=== PATIENT | male | born 1950 | race Caucasian/White ===

== ENCOUNTER 2017-04-06 09:46 | Inpatient (IN) | payer MEDICARE, SELFPAY ==
[2017-04-06] VITALS (17 sets, daily range): BP systolic 98–131; BP diastolic 51–85; PULSE 61–97; RESP 14–24; TEMP 36.4–37.1; O2SAT 95–100; BMI 27.9; BMI 28.3
[2017-04-06] MEDS: 0.9% Normal Saline 1,000 ML 1000 ML IV ×2 (10:21)
[2017-04-06] MEDS: Ondansetron 4 MG/2 ML Vial IV (10:21)
--- NOTE | 2017-04-06 10:26 | RAD_ITS ---
STUDY: X-RAY CHEST REASON FOR EXAM: Male, 66 years old. Cough and nausea. Patient is on chemotherapy. TECHNIQUE: AP and lateral views of the chest. COMPARISON: Comparison is made with prior study dated March 08, 2017. FINDINGS: EKG electrodes are seen. A left-sided portacatheter is in situ. The tip is at the junction of the superior vena cava and right atrium. The lungs are clear and expanded. There is no demonstrated pleural abnormality. Normal size heart. Normal mediastinum and naveed. Normal visualized pulmonary arteries. Normal visualized aortic arch and descending thoracic aorta. Normal visualized thoracic spine. Normal visualized ribs, clavicles, and shoulders. There is no demonstrated abnormality of the visualized soft tissue structures of the upper abdomen. RAD/Chest PA and Lateral IMPRESSION: No acute abnormality is seen. Electronically Signed: Leopoldo Tang MD at 11:21 EST Tel [phone], Service support ,
--- NOTE | 2017-04-06 10:34 | ED.VISSUMM ---
- ER Visit Summary Date of Service: 04/06/17 Chief Complaint: Nausea, vomiting, dehydration History of Present Illness: The patient is a 66 M with a history of stage III esophageal cancer presenting with decreased p.o. intake for the last 3 days. He has been nauseated and vomiting ever since his last chemotherapy treatment which was approximately 6 days ago but much worse for the past 3 days. He does not have abdominal pain but he does feel generally weak and has subjective fevers and chills. He also has mild dysuria. He spoke with his building specialist and arrangements were made to place a PEG tube tomorrow. Dr. Holman has already been in contact with Dr. Amaya Physical Examination: He is mildly tachycardic. Mucous membranes are dry. Afebrile. Other vitals are within normal limits. Neck is supple. Heart tones are regular and without murmur. Lungs are clear bilaterally. Abdomen is soft and nontender. No edema. No rash. Test Results: Laboratory studies are basically unremarkable. He appears somewhat dehydrated. His counts are low, as expected. Flu swab negative. Chest x-ray negative. Urine still pending. Emergency Department Course and Treatment: He was given IV fluids and antiemetics and admitted to the hospitalist. Plan is for PEG tube placement. Treatment Plan: Continued IV fluids and admit for surgical consultation Disposition: Admit to medical floor Impression: Initial encounter intractable vomiting, initial encounter acute dehydration the setting of recent chemotherapy with history of stage III esophageal cancer This note was generated with [employer] dictation software. It may contain incorrect words, spelling, and punctuation that were not noted in review of the chart prior to signing ED Disposition - Plan for ED Patient: Chief Complaint: Nausea/Vomiting Referrals: Awais Holman DO [STAFF PHYSICIAN] -
--- NOTE | 2017-04-06 10:37 | ED.DCSUM_ITS ---
- ER Visit Summary Date of Service: 04/06/17 Chief Complaint: Nausea, vomiting, dehydration History of Present Illness: The patient is a 66 M with a history of stage III esophageal cancer presenting with decreased p.o. intake for the last 3 days. He has been nauseated and vomiting ever since his last chemotherapy treatment which was approximately 6 days ago but much worse for the past 3 days. He does not have abdominal pain but he does feel generally weak and has subjective fevers and chills. He also has mild dysuria. 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 Dr. Holman has already been in contact with Dr. Amaya Physical Examination: He is mildly tachycardic. Mucous membranes are dry. Afebrile. Other vitals are within normal limits. Neck is supple. Heart tones are regular and without murmur. Lungs are clear bilaterally. Abdomen is soft and nontender. No edema. No rash. Test Results: Laboratory studies are basically unremarkable. He appears somewhat dehydrated. His counts are low, as expected. Flu swab negative. Chest x-ray negative. Urine still pending. Emergency Department Course and Treatment: He was given IV fluids and antiemetics and admitted to the hospitalist. Plan is for PEG tube placement. Treatment Plan: Continued IV fluids and admit for surgical consultation Disposition: Admit to medical floor Impression: Initial encounter intractable vomiting, initial encounter acute dehydration the setting of recent chemotherapy with history of stage III esophageal cancer This note was generated with [employer] dictation software. It may contain incorrect words, spelling, and punctuation that were not noted in review of the chart prior to signing ED Disposition - Plan for ED Patient: Chief Complaint: Nausea/Vomiting Referrals: Awais Holman DO [STAFF PHYSICIAN] -
--- NOTE | 2017-04-06 10:43 | ED.RN ---
THIS NURSE CONTACTED [facility] FOR MEDICATION LIST
--- NOTE | 2017-04-06 10:46 | ED.RN ---
[facility] [phone]
[2017-04-06 10:58] LABS: Absolute Lymphocyte Count 0.26 X10^3/ul (0.83-4.51); Absolute Neutrophil Count 1.9 X10^3/uL (2.0-7.7); Eosinophil# 0.01 X10^3/uL; Eosinophils% 0.4 % (0-5); Hematocrit 31.1 % (40-54); Hemoglobin 10.6 g/dl (13.0-16.5); Lymphocyte # 0.26 X10^3/ul (4.0); Lymphocyte % 11.5 % (19-41); Mean Corp Hgb Conc 34.1 g/gl (32-36); Mean Corpuscular Hgb 31.4 pg (27.0-32.0); Mean Platelet Vol. 9.3 fl (6.2-12.0); Monocyte# 0.05 X10^3/uL; Monocyte% 2.2 % (0-10); Neutrophil # 1.94 X10^3/uL (2.7-7.7); Neutrophil % 85.5 % (47-70); Platelet Count 82 K/mm3 (150-450); RBC Distribution Width CV 13.7 % (11.6-14.6); RBC Distribution Width SD 44.3 fl (35.1-43.9); Red Blood Count 3.38 M/mm3 (4.6-6.2); White Blood Count 2.3 K/mm3 (4.4-11.0)
[2017-04-06 10:59] LABS: Differential Indicated SCAN CRITERIA MET; POSITIVE COUNT NO; POSITIVE DIFFERENTIAL YES; POSITIVE MORPHOLOGY NO
[2017-04-06 11:10] LABS: ALB/GLOB Ratio 0.9 RATIO (0.9-2.4); AST(SGOT) 15 U/L (15-37); Alanine Aminotransfer ALT/SGPT 30 U/L (16-61); Albumin, Serum 3.4 g/dL (3.2-5.0); Alkaline Phosphatase 60 U/L (45-117); Anion Gap 10 (5-15); BUN 19 mg/dL (7-18); BUN/Creat Ratio 28.5 RATIO (10-20); Calcium,Total 8.9 mg/dL (8.5-10.1); Chloride 103 mmol/L (98-107); Creatinine, Serum 0.67 mg/dL (0.70-1.30); EST Glomerular Filtration Rate 128 mL/min (>60); Est Glom Filt Rate - Afr Amer 154 mL/min (>60); Estimated Creatinine Clearance 122.26 ml/min; Globulin 3.6 g/dL (2.2-4.2); Glucose 131 mg/dL (70-110); Potassium 3.7 mmol/L (3.5-5.1); Sodium Level 137 mmol/L (136-145)
--- NOTE | 2017-04-06 11:41 | NURSING ---
DR DENNIS OCAMPO
--- NOTE | 2017-04-06 12:02 | NURSING ---
MED SURG INANITION, ESOPHAGEAL CA, UNABLE TO SWALLOW SEMENTI
--- NOTE | 2017-04-06 12:03 | HP.PCM_ITS ---
Problem List (1) Esophageal cancer Status: Chronic Qualifiers: Malignant neoplasm of esophagus location: lower third Qualified Code(s): C15.5 - Malignant neoplasm of lower third of esophagus Comment: follows with Dr. Holman and is getting chemotherapy (2) Pancytopenia Status: Acute (3) Inanition Status: Chronic (4) Swallowing difficulty Status: Chronic (5) Chronic anticoagulation Status: Acute Comment: on Xarelto (6) History of recurrent deep vein thrombosis (DVT) Status: Chronic Comment: GUILLAUME Hughes (7) Former cigarette smoker Status: Chronic Comment: quit in March of 2017 (8) Dehydration Status: Acute (9) Thrush Status: Acute (10) Diabetes mellitus type 2 in nonobese Status: Acute (11) Chronic radicular low back pain Status: Acute History of Present Illness Date of Admission: 04/06/17 Chief Complaint: unable to eat The patient is a 66 year old M with a hx of esophageal CA diagnosed in December of 2016. He started both chemotherapy and radiation in March of 2017. Has been seeing Dr. Holman. He has been having difficulty swallowing and is also having N/V. He also complains of a cough productive of clear sputum. He has been feeling hot and cold but has not taken his temperature. His urine is very dark and strong smelling the past few days and He has been feeling lightheaded. Denies syncope. He was sent to the ED by Dr. Holman today for dehydration and Dr. Amaya has been consulted by Dr. Holman for PEG tube placement. He did not take any of his medications today and is c/o severe pain in both legs and he can not lie on his back...he is most comfortable on the right side. Past Medical History Past Medical History (Chronic Problems): Chronic Problems Esophageal cancer (Chronic) follows with Dr. Holman and is getting chemotherapy Inanition (Chronic) Swallowing difficulty (Chronic) History of recurrent deep vein thrombosis (DVT) (Chronic) GUILLAUME Hughes Former cigarette smoker (Chronic) quit in March of 2017 Allergies linagliptin [From Tradjenta] Allergy (Verified 04/06/17 09:50) Rash Home Medications: Ambulatory Orders Medication Instructions Recorded Cholecalciferol (Vitamin D3) 2,000 unit PO DAILY 04/06/17 [Vitamin D3] Citalopram Hydrobromide 20 mg PO DAILY 04/06/17 [Citalopram HBr] Gabapentin [Gralise] 900 mg PO TID 04/06/17 Lisinopril [Zestril] 5 mg PO DAILY 04/06/17 Lovastatin [Mevacor] 40 mg PO DAILY 04/06/17 Metformin HCl [Metformin HCl ER] 500 mg PO DINNER 04/06/17 Omeprazole [Prilosec] 20 mg PO DAILY 04/06/17 Oxycodone HCl/Acetaminophen 1 tablet PO Q6H PRN PRN 04/06/17 [Percocet 10-325 mg Tablet] Promethazine HCl 25 mg IJ Q6H PRN PRN 04/06/17 Rivaroxaban [Xarelto] 20 mg PO DAILY 04/06/17 Sucralfate [Carafate] 1 gm PO BID 04/06/17 Topiramate [Topiramate ER] 100 mg PO QHS 04/06/17 Surgical History: herniorrhaphy - ventral hernia Psychiatric History: No pertinent psych hx - started on Celexa recently by Dr. Holman Lives: Spouse/ Significant Other Smoking Status: Former smoker - quit in March 2017 Tobacco Use: Non-smoker Alcohol: Rare Drugs: None - *Family History Maternal History Items: Cancer - maternal uncle had lung CA Review of Systems Constitutional: Reports: Anorexia, Chills - alternately hot and then cold.....has not taken temp, Malaise, Weakness, Weight Change - has been losing weight Eyes: Denies: Blurred vision, Redness HEENT: Reports: Difficulty Swallowing, Nasal bleeding. Denies: Difficulty Hearing Cardiovascular: Reports: Light Headedness. Denies: Chest Pain, Edema, Syncope Respiratory: Reports: Cough, Sputum production - clear Gastrointestinal: Reports: Dyspepsia, Nausea, Vomiting. Denies: Hematemesis Genitourinary: Denies: Dysuria Musculoskeletal: Reports: Leg Pain - BL....has chronic back pain with radiation to both legs....unable to take Neurontin recently due to trouble swallowing and N/V Skin: Denies: Jaundice, Rash, Wounds Neurological: Denies: Balance problems, Slurred speech, Confusion, Seizures Psychiatric: Denies: Anxiety, Depression, Homicidal Ideations, Suicidal Ideations Hematologic/ Lymphatic: Reports: Hx of blood clot - has had DVT in the RLE and when Warfarin was stooped he got a DVT in the LLE. Denies any hx of PE VTE Information - Inpt Only VTE Present on Admission: No - has been taking 20 mg of Xarelto VTE Mechan Device Prophylaxis: SCD's, Knee High JULIO CESAR Hose VTE Pharm Prophylaxis ordered?: Yes Patient Problems: Active and Suspected Problems Pancytopenia (Acute) Chronic anticoagulation (Acute) on Xarelto Dehydration (Acute) Thrush (Acute) Diabetes mellitus type 2 in nonobese (Acute) Chronic radicular low back pain (Acute) - Physical Exam General: Alert, Oriented x3, Cooperative, - - appears to be in severe pain HEENT: Atraumatic, PERRLA, EOMI, Normocephalic Oral: No Gingival or Mucosal Lesions/ Ulcerations - he has patchy erythema of the hard and the soft palate, Dry Mucosa, - - tongue is coated and he has a bad taste in his mouth Neck: Supple, No JVD, No Nodes, Trachea Midline Lungs: Clear to auscultation, No rhonchi, No wheeze, No rales, Diminished Cardiovascular: Regular Rhythm, Normal S1, Normal S2, No murmurs, No rub noted, No Gallop, Tachycardic Abdomen: Soft, Non Tender, Non-Distended, Hypoactive Bowel Sounds Extremities: No clubbing, No cyanosis, No edema, Peripheral Pulses Normal Skin: No rashes, No breakdown Musculoskeletal: No Muscle Wasting Neurological: Cranial nerves II-XII grossly intact, Neuro grossly intact Psych/Mental Status: Appropriate Vital Signs Temp Pulse Resp BP Pulse Ox 98.7 F 75 24 H 122/79 H 96 04/06/17 09:48 04/06/17 11:49 04/06/17 11:49 04/06/17 11:49 04/06/17 11:49 Oxygen Delivery Method Room Air Weight: 206 lb Body Mass Index (BMI) 27.9 Microbiology Past 72 Hours 04/06/17 10:40 Influenza Types A,B Direct FA (KINGA) - Final Mucosa - Nose Laboratory Tests Past 24 Hrs 04/06/17 04/06/17 10:20 10:20 WBC 2.3 L RBC 3.38 L Hgb 10.6 L Hct 31.1 L MCV 92.0 MCH 31.4 MCHC 34.1 RDW 13.7 RDW Differential 44.3 H Plt Count 82 L MPV 9.3 Immature Gran % (Auto) 0.400 Neut % (Auto) 85.5 H Lymph % (Auto) 11.5 L [place] % (Auto) 2.2 Eos % (Auto) 0.4 Baso % (Auto) 0.0 Absolute Neuts (auto) 1.9 L Absolute Lymphs (auto) 0.26 L Total Counted Not Reportable Differential Comment COMMENT Sodium 137 Potassium 3.7 Chloride 103 Carbon Dioxide 24.0 Anion Gap 10 BUN 19 H Creatinine 0.67 L Estim Creat Clear Calc 122.26 Est GFR (MDRD) Af Amer 154 Est GFR (MDRD) Non-Af 128 BUN/Creatinine Ratio 28.5 H Glucose 131 H Calcium 8.9 Total Bilirubin 0.50 AST 15 ALT 30 Alkaline Phosphatase 60 Total Protein 7.0 Albumin 3.4 Globulin 3.6 Albumin/Globulin Ratio 0.9 Assessment/Plan Active and Suspected Problems Pancytopenia (Acute) Chronic anticoagulation (Acute) on Xarelto Dehydration (Acute) Thrush (Acute) Diabetes mellitus type 2 in nonobese (Acute) Chronic radicular low back pain (Acute) Impressions 1. inanition 2. 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 esophageal CA - surrently being treated with chemo and radiation 4. Former smoker - quit March 2017 5. hx of recurrent DVT's 6. chronic anticoagulation with Warfarin 7. dehydration 8. DM II 9. Thrush 10. chronic back pain with radiation into both legs Consult Dr. Amaya for a PEG LEATHER LEVELER for pain control Hold Xarelto today and give 1 dose Lovenox restart the Lovenox at 1 mg/kg Q 12 hours when OK with Dr. Amaya Recheck BMP in AM Check a PT and PTT Hydrate Check a UA and culture Code Visit Inpatient E&M: 71914 Init Hosp L2
[2017-04-06 13:02] LABS: International Normalized Ratio 1.3; Prothrombin Time (Protime)PT. 15.2 SECONDS (11.7-14.9)
[2017-04-06 13:03] LABS: Partial Thromboplast Time 27.7 Seconds (24.1-36.2)
[2017-04-06] MEDS: Lactated Ringers 1,000 ML 125 ML IV ×2 (13:08→23:07)
[2017-04-06] MEDS: HYDROmorphone 1 MG/ML Syringe IV (13:55)
[2017-04-06] MEDS: HYDROmorphone PCA 0.2 MG/ML 100 ML BAG 20 MG IV (14:28)
[2017-04-06 14:36] LABS: Magnesium 1.7 mg/dL (1.6-2.6); Phosphorus 3.4 mg/dL (2.5-4.9)
[2017-04-06] MEDS: 0.9% Normal Saline 1,000 ML 999 ML IV (14:52)
[2017-04-06] MEDS: Enoxaparin 40 MG/0.4 ML Syringe SC (14:58)
[2017-04-06 15:44] LABS: Bacteria 0 SEEN /hpf (None Seen); Red Blood Cells-Urine 0 SEEN /hpf (0-5); Squamous Epithelial Cells - UA 0 SEEN /hpf (0-5)
[2017-04-06 15:46] LABS: Color, Urine Yellow (Yellow); Glucose, Dipstick Normal (Normal); Leukocyte Esterase-Dipstick 25 /ul (Negative); Nitrite-Dipstick Negative (Negative); Occult Blood-Urine Negative /ul (Negative); Protein-Dipstick 15 mg/dl (Negative); Urine Bilirubin Dipstick Negative (Negative); Urine Clarity Clear (Clear); Urine Urobilinogen 4 mg/dl (Normal)
[2017-04-06 15:50] LABS: Ketone-Dipstick 150 mg/dl (Negative)
[2017-04-06 15:57] LABS: White Blood Cells 0-5 SEEN /hpf (0-5)
[2017-04-06 15:58] LABS: Mucous, Urine 2+ /hpf (<or=2+)
[2017-04-06 17:31] LABS: Bedside Glucose 101 mg/dL (70-110)
--- NOTE | 2017-04-06 18:15 | PCM.CONS.B ---
Problem List (1) Esophageal cancer Status: Chronic Qualifiers: Malignant neoplasm of esophagus location: lower third Qualified Code(s): C15.5 - Malignant neoplasm of lower third of esophagus Comment: follows with Dr. Holman and is getting chemotherapy (2) Pancytopenia Status: Acute (3) Dehydration Status: Acute - Consult Date of Consult: 04/06/[address] Vanegas regarding a patient with locally advanced esophageal cancer receiving concurrent chemotherapy and radiation therapy with severe dysphagia, pain and dehydration. My final recommendation will be communicated by electronic medical records - Reason for Consult Esophageal cancer Pancytopenia secondary to chemotherapy Radiation-induced esophagitis History of Present Illness Date of Admission: 04/06/17 Chief Complaint: Dysphagia and dehydration The patient is a 66 year old M with a hx of esophageal CA diagnosed in December of 2016. He started concurrent chemotherapy ( paclitaxel and carboplatin weekly ) and radiation the beginning of March of 2017. He has been having difficulty swallowing along with N/V starting this week. He also complains of a cough productive of clear sputum. He has been feeling warm with chills, but has not taken his temperature. He has not been eating or drinking well for the last week and he has been feeling lightheaded. His urine output is decreased with dark urine. Although patient denied dysuria or hematuria. He was sent to the ED today by Dr. Holman for dehydration and Dr. Amaya has been consulted by Dr. Holman for PEG tube placement. He has history of bilateral DVT and has c/o severe pain in both legs and he can not lie on his back. He has receive IV fluid hydration and his symptom has improved somewhat. Past Medical History Past Medical History (Chronic Problems): Chronic Problems Esophageal cancer (Chronic) follows with Dr. Holman and is getting chemotherapy Swallowing difficulty (Chronic- x 1 year) History of recurrent deep vein thrombosis (DVT) (Chronic) Former cigarette smoker (Chronic) quit in March of 2017 Allergies linagliptin [From Tradjenta] Allergy (Verified 04/06/17 09:50) Rash Home Medications: Ambulatory Orders Medication Instructions Recorded Cholecalciferol (Vitamin D3) 2,000 unit PO DAILY 04/06/17 [Vitamin D3] Citalopram Hydrobromide 20 mg PO DAILY 04/06/17 [Citalopram HBr] Gabapentin [Gralise] 900 mg PO TID 04/06/17 Lisinopril [Zestril] 5 mg PO DAILY 04/06/17 Lovastatin [Mevacor] 40 mg PO DAILY 04/06/17 Metformin HCl [Metformin HCl ER] 500 mg PO DINNER 04/06/17 Omeprazole [Prilosec] 20 mg PO DAILY 04/06/17 Oxycodone HCl/Acetaminophen 1 tablet PO Q6H PRN PRN 04/06/17 [Percocet 10-325 mg Tablet] Promethazine HCl 25 mg IJ Q6H PRN PRN 04/06/17 Rivaroxaban [Xarelto] 20 mg PO DAILY 04/06/17 Sucralfate [Carafate] 1 gm PO BID 04/06/17 Topiramate [Topiramate ER] 100 mg PO QHS 04/06/17 Surgical History: herniorrhaphy - ventral hernia Psychiatric History: No pertinent psych hx - started on Celexa recently by Dr. Holman Lives: Spouse/ Significant Other Smoking Status: Former smoker - quit in March 2017 Tobacco Use: Non-smoker Alcohol: Rare Drugs: None - *Family History Maternal History Items: Cancer - maternal uncle had lung CA Review of Systems Constitutional: Reports: Anorexia, Chills - alternately hot and then cold.....has not taken temp, Malaise, Weakness, Weight Change - has been losing weight Eyes: Denies: Blurred vision, Redness HEENT: Reports: Difficulty Swallowing, Nasal bleeding. Denies: Difficulty Hearing Cardiovascular: Reports: Light Headedness. Denies: Chest Pain, Edema, Syncope Respiratory: Reports: Cough, Sputum production - clear Gastrointestinal: Reports: Dyspepsia, Nausea, Vomiting. Denies: Hematemesis Genitourinary: Denies: Dysuria Musculoskeletal: Reports: Leg Pain - BL....has chronic back pain with radiation to both legs....unable to take Neurontin recently due to trouble swallowing and N/V Skin: Denies: Jaundice, Rash, Wounds Neurological: Denies: Balance problems, Slurred speech, Confusion, Seizures Psychiatric: Denies: Anxiety, Depression, Homicidal Ideations, Suicidal Ideations Hematologic/ Lymphatic: Reports: Hx of blood clot - has had DVT in the RLE and when Warfarin was stooped he got a DVT in the LLE. Denies any hx of PE Patient Problems: Active and Suspected Problems Pancytopenia (Acute) Dysphasia/esophagitis (Acute) Chronic anticoagulation for chronic DVTs (Chronic) on Xarelto Dehydration (Acute) Diabetes mellitus type 2 in nonobese (Chronic) Chronic radicular low back pain (Chronic) - Physical Exam General: Alert, Oriented x3, Cooperative, - - appears to be in severe pain HEENT: Atraumatic, PERRLA, EOMI, Normocephalic Oral: No Gingival or Mucosal Lesions/ Ulcerations - he has patchy erythema of the hard and the soft palate, Dry Mucosa, - - tongue is coated and he has a bad taste in his mouth Neck: Supple, No JVD, No Nodes, Trachea Midline Lungs: Clear to auscultation, No wheeze, No rales, Diminished with rhonchi on the right lung base Cardiovascular: Regular Rhythm, Normal S1, Normal S2, No murmurs, No rub noted, No Gallop, Tachycardic Abdomen: Soft, Non Tender, Non-Distended, Hypoactive Bowel Sounds Extremities: No clubbing, No cyanosis, No edema, Peripheral Pulses Normal Skin: No rashes, No breakdown Musculoskeletal: No Muscle Wasting Neurological: Cranial nerves II-XII grossly intact, Neuro grossly intact Psych/Mental Status: Appropriate Vital Signs Temp Pulse Resp BP Pulse Ox 98.7 F 75 24 H 122/79 H 96 04/06/17 09:48 04/06/17 11:49 04/06/17 11:49 04/06/17 11:49 04/06/17 11:49 Oxygen Delivery Method Room Air Weight: 206 lb Body Mass Index (BMI) 27.9 Microbiology Past 72 Hours 04/06/17 10:40 Influenza Types A,B Direct FA (KINGA) - Final Mucosa - Nose Laboratory Tests Past 24 Hrs 04/06/17 04/06/17 10:20 10:20 WBC 2.3 L RBC 3.38 L Hgb 10.6 L Hct 31.1 L MCV 92.0 MCH 31.4 MCHC 34.1 RDW 13.7 RDW Differential 44.3 H Plt Count 82 L MPV 9.3 Immature Gran % (Auto) 0.400 Neut % (Auto) 85.5 H Lymph % (Auto) 11.5 L [place] % (Auto) 2.2 Eos % (Auto) 0.4 Baso % (Auto) 0.0 Absolute Neuts (auto) 1.9 L Absolute Lymphs (auto) 0.26 L Total Counted Not Reportable Differential Comment COMMENT Sodium 137 Potassium 3.7 Chloride 103 Carbon Dioxide 24.0 Anion Gap 10 BUN 19 H Creatinine 0.67 L Estim Creat Clear Calc 122.26 Est GFR (MDRD) Af Amer 154 Est GFR (MDRD) Non-Af 128 BUN/Creatinine Ratio 28.5 H Glucose 131 H Calcium 8.9 Total Bilirubin 0.50 AST 15 ALT 30 Alkaline Phosphatase 60 Total Protein 7.0 Albumin 3.4 Globulin 3.6 Albumin/Globulin Ratio 0.9 Assessment/Plan Active and Suspected Problems 1) pancytopenia secondary to chemotherapy- no obvious source of infection/sepsis Plan: - Blood culture & urine culture pending - Hold antibiotics unless patient decompensated with fever 2) dysphasia secondary to esophagitis radiation and chemotherapy Plan: - Clear liquid diet - Continue PPI, morphine when necessary, BMX suspension when necessary - Continue Diflucan for flush - Consult Dr. Amaya for EGD & PEG tube placement 3) dehydration secondary to above Plan: - IV fluid for hydration 4) esophageal cancer Plan: - Hold chemotherapy and radiation treatment until symptomatic improved - Discusses plan with Dr. Holman tomorrow.
[2017-04-06 21:23] LABS: M R Staph aureus DNA By PCR Negative (Negative); Probe Check PASS; Specimen Processing Control PASS
[2017-04-07] VITALS (27 sets, daily range): BP systolic 97–128; BP diastolic 53–86; PULSE 55–71; RESP 14–18; TEMP 36.4–37.1; O2SAT 95–100
--- NOTE | 2017-04-07 | IMM_PTH ---
PATIENT: RENEE JAEGER LOC: MS2 U#:[id number] AGE/SX: 66/M ROOM: [facility] [place] RE04/06/[address]: Dr. Sobia Vanegas DO : 1950 BED: 1 DIS: 04/09/2017 SPEC #: [id number] RECD: 04/08/17 10:24 STATUS: SOUT REQ #: [id number] JEANMARIE: 04/07/17 00:[address]: Britton Amaya DEPT: IMMUNOHISTOCHEMISTRY RECD BY: Sravani Garcia ENTERED: 04/08/17 10:24 SP TYPE: IMMUNO OTHR DR: Dr. Sobia Vanegas, DO Dr. Awais Holman, DO No Primary Care Phys Tissues: Stomach, NOS Procedures: H Pylori (initial) Comments: @ Ordering doctor for H.PYLORI edited from to @ by CELE at 04/08/17 1042 @ Submitting doctor edited from to DR.RGUTTM Blanc by CELE at 04/08/17 1042 PHYSICIAN & [address] [address] SPECIMEN INFORMATION: Tissue Source: Antral biopsy Clinical Info: Kelly Specimen Number: [id number] CPT code: 85116 METHODOLOGY: Deparaffinized sections of prefer/formalin-fixed tissue or PAP/DQ stained slides are incubated with monoclonal/polyclonal antibodies/oligonucleotide probes. Localization is made via biotin free immunoperoxidase method. Appropriate controls are performed and reacted as expected. Results on target cell population are indicated in the following table: RESULTS: ANTIBODY / CLONE RESULT H Pylori (polyclonal) negative These tests were developed and their performance characteristics determined by [facility]. They may not have been cleared or approved by the U.S. Food and Drug Administration. The FDA has determined that such clearance or approval is not necessary. INTERPRETATION: Antral biopsy: Negative for Helicobacter pylori organisms. SJ:jazmin 04/11/17
--- NOTE | 2017-04-07 | GASB_PTH ---
PATIENT: RENEE JAEGER LOC: MS2 U#:[id number] AGE/SX: 66/M ROOM: [facility] [place] RE04/06/[address]: Dr. Sobia Vanegas DO : 1950 BED: 1 DIS: 04/09/2017 SPEC #: [id number] RECD: 04/07/17 14:36 STATUS: SOUAtiya REQ #: [id number] JEANMARIE: 04/07/17 00:[address]: Britton Amaya DEPT: SURGICAL PATHOLOGY RECD BY: Kane Khan ENTERED: 04/07/17 14:36 SP TYPE: Gastric Bx OTHR DR: Dr. Sobia Vanegas, DO Dr. Awais Holman, No Primary Care Phys Tissues: Gastric mucous membrane Procedures: Surgery Specimen Level IV Comments: @ Ordering doctor for SUIV edited from to @ by CELE at 04/07/17 1530 @ Submitting doctor edited from to DR.RGUTTM Blanc by CELE at 04/07/17 1530 HEADER OPERATION: EGD PRE-OP DIAGNOSIS: Dysphagia TISSUE SUBMITTED: Antral biopsy MICROSCOPIC DIAGNOSIS Antral biopsy: Mild gastritis. TRE:jazmin 04/08/17 COMMENT The results of immunohistochemistry for Helicobacter pylori will be reported separately ([id number]). MICROSCOPIC DESCRIPTION Slides are reviewed. The specimen shows fragments of gastric mucosa with chronic inflammatory cell infiltrates in the lamina propria consisting of lymphocytes and plasma cells, consistent with mild chronic gastritis. GROSS DESCRIPTION Received in fixative is one container labeled with the patient's name and designated antral biopsy. The specimen consists of one irregular fragment of light moreno soft tissue that measures 0.3 x 0.3 x 0.1 cm. The specimen is totally submitted in one cassette. / TRE:jazmin 04/07/17 TC:3 CPT: 50699
[2017-04-07 00:11] LABS: Bedside Glucose 113 mg/dL (70-110)
[2017-04-07 05:56] LABS: Bedside Glucose 94 mg/dL (70-110)
[2017-04-07 05:58] LABS: Absolute Lymphocyte Count 0.09 X10^3/ul (0.83-4.51); Absolute Neutrophil Count 1.2 X10^3/uL (2.0-7.7); Eosinophil# 0.04 X10^3/uL; Eosinophils% 2.7 % (0-5); Hematocrit 24.4 % (40-54); Hemoglobin 8.3 g/dl (13.0-16.5); Lymphocyte # 0.09 X10^3/ul (4.0); Mean Corpuscular Hgb 31.8 pg (27.0-32.0); Mean Corpuscular Volume 93.5 fL (80-94); Mean Platelet Vol. 8.9 fl (6.2-12.0); Monocyte# 0.19 X10^3/uL; Monocyte% 12.7 % (0-10); Neutrophil # 1.18 X10^3/uL (2.7-7.7); Neutrophil % 78.6 % (47-70); Platelet Count 60 K/mm3 (150-450); RBC Distribution Width CV 13.2 % (11.6-14.6); RBC Distribution Width SD 42.1 fl (35.1-43.9); Red Blood Count 2.61 M/mm3 (4.6-6.2); White Blood Count 1.5 K/mm3 (4.4-11.0)
--- NOTE | 2017-04-07 06:00 | EKG12_ITS ---
Test Reason : AM EKG Blood Pressure : / mmHG Vent. Rate : 060 BPM Atrial Rate : 060 BPM P-R Int : 166 ms QRS Dur : 088 ms QT Int : 440 ms P-R-T Axes : 054 -03 005 degrees QTc Int : 440 ms Normal sinus rhythm Normal ECG Confirmed by SCOOTER RAMOS, ASHOK ([id number]), associate entertainment editor LYNNE CARLOS ([id number]) on 04/18/2017 2:14:36 PM Referred By: DR COLLINS Confirmed By:ASHOK HELMS MD
[2017-04-07 06:06] LABS: Differential Indicated SCAN CRITERIA MET; International Normalized Ratio 1.3; POSITIVE COUNT NO; POSITIVE DIFFERENTIAL YES; POSITIVE MORPHOLOGY NO; Prothrombin Time (Protime)PT. 15.8 SECONDS (11.7-14.9)
[2017-04-07 06:07] LABS: Partial Thromboplast Time 28.8 Seconds (24.1-36.2)
[2017-04-07 06:20] LABS: AST(SGOT) 12 U/L (15-37); Alanine Aminotransfer ALT/SGPT 25 U/L (16-61); Albumin, Serum 2.6 g/dL (3.2-5.0); Alkaline Phosphatase 48 U/L (45-117); Anion Gap 7 (5-15); BUN 13 mg/dL (7-18); BUN/Creat Ratio 33.1 RATIO (10-20); Bilirubin, Direct 0.16 mg/dL (0.00-0.30); Calcium,Total 8.1 mg/dL (8.5-10.1); Chloride 108 mmol/L (98-107); Creatinine, Serum 0.39 mg/dL (0.70-1.30); EST Glomerular Filtration Rate 235 mL/min (>60); Est Glom Filt Rate - Afr Amer 284 mL/min (>60); Estimated Creatinine Clearance 210.03 ml/min; Globulin 2.7 g/dL (2.2-4.2); Glucose 94 mg/dL (70-110); Potassium 3.5 mmol/L (3.5-5.1); Protein, Total 5.3 g/dL (6.4-8.2); Sodium Level 140 mmol/L (136-145)
--- NOTE | 2017-04-07 07:38 | PCM.PROGNOTE ---
Patient Problems: Active and Suspected Problems Pancytopenia (Acute) Chronic anticoagulation (Acute) on Xarelto Dehydration (Acute) Thrush (Acute) Diabetes mellitus type 2 in nonobese (Acute) Chronic radicular low back pain (Acute) Subjective: Doing better this morning. Some nausea but no vomiting. Waiting for PEG tube placement this afternoon. Denies cough or shortness of breath. No fever or diarrhea. - Physical Exam General: Alert, Oriented x3 Oral: No Gingival or Mucosal Lesions/ Ulcerations Neck: Supple, No JVD Lungs: Clear to auscultation Cardiovascular: Regular rate, Regular Rhythm Abdomen: Bowel Sounds Present, Soft, Non Tender, No Hepato-splenomegaly Extremities: No clubbing, No cyanosis, No edema Skin: No rashes Lymphatic: No Cervical, Supraclavicular, or Inguinal Adenopathy Neurological: Neuro grossly intact Psych/Mental Status: Normal Affect Vital Signs Temp Pulse Resp BP Pulse Ox 97.7 F L 62 14 114/63 99 04/07/17 07:25 04/07/17 07:25 04/07/17 07:26 04/07/17 07:25 04/07/17 07:26 Oxygen Delivery Method Room Air Weight: 208 lb 8.917 oz Body Mass Index (BMI) 28.3 Intake and Output for Last 24 Hours 04/05/17 04/06/17 04/07/17 23:59 23:59 23:59 Intake Total 1956 / 1956 772 / 772 Output Total 225 / 225 Balance 1731 / 1731 772 / 772 Microbiology Past 72 Hours 04/07/17 03:30 Gram Stain - Preliminary Sputum, Expectorated/Coughed Laboratory Tests Past 24 Hrs 04/06/17 04/06/17 04/06/17 12:30 15:35 15:35 WBC RBC Hgb Hct MCV MCH MCHC RDW RDW Differential Plt Count MPV Immature Gran % (Auto) Neut % (Auto) Lymph % (Auto) [place] % (Auto) Eos % (Auto) Baso % (Auto) Absolute Neuts (auto) Absolute Lymphs (auto) Total Counted PT 15.2 H INR 1.3 APTT 27.7 Sodium Potassium Chloride Carbon Dioxide Anion Gap BUN Creatinine Estim Creat Clear Calc Est GFR (MDRD) Af Amer Est GFR (MDRD) Non-Af BUN/Creatinine Ratio Glucose Hemoglobin A1c Calcium Total Bilirubin Direct Bilirubin AST ALT Alkaline Phosphatase Total Protein Albumin Globulin Urine Color Yellow Urine Clarity Clear Urine pH 6.0 Ur Specific [place] 1.020 Urine Protein 15 H Urine Glucose (UA) Normal Urine Ketones 150 H Urine Occult Blood Negative Urine Nitrite Negative Urine Bilirubin Negative Urine Urobilinogen 4 H Ur Leukocyte Esterase 25 H Urine RBC 0 SEEN Urine WBC 0-5 SEEN Ur Squamous Epith Cells 0 SEEN Urine Bacteria 0 SEEN Urine Mucus 2+ MRSA (PCR) Negative 04/07/17 04/07/17 04/07/17 05:35 05:35 05:35 WBC 1.5 L RBC 2.61 L Hgb 8.3 L Hct 24.4 L MCV 93.5 MCH 31.8 MCHC 34.0 RDW 13.2 RDW Differential 42.1 Plt Count 60 L MPV 8.9 Immature Gran % (Auto) 0.000 Neut % (Auto) 78.6 H Lymph % (Auto) 6.0 L [place] % (Auto) 12.7 H Eos % (Auto) 2.7 Baso % (Auto) 0.0 Absolute Neuts (auto) 1.2 L Absolute Lymphs (auto) 0.09 L Total Counted Not Reportable PT 15.8 H INR 1.3 APTT 28.8 Sodium 140 Potassium 3.5 Chloride 108 H Carbon Dioxide 25.0 Anion Gap 7 BUN 13 Creatinine 0.39 L Estim Creat Clear Calc 210.03 Est GFR (MDRD) Af Amer 284 Est GFR (MDRD) Non-Af 235 BUN/Creatinine Ratio 33.1 H Glucose 94 Hemoglobin A1c Calcium 8.1 L Total Bilirubin 0.40 Direct Bilirubin 0.16 AST 12 L ALT 25 Alkaline Phosphatase 48 Total Protein 5.3 L Albumin 2.6 L Globulin 2.7 Urine Color Urine Clarity Urine pH Ur Specific [place] Urine Protein Urine Glucose (UA) Urine Ketones Urine Occult Blood Urine Nitrite Urine Bilirubin Urine Urobilinogen Ur Leukocyte Esterase Urine RBC Urine WBC Ur Squamous Epith Cells Urine Bacteria Urine Mucus MRSA (PCR) 04/07/17 05:35 WBC RBC Hgb Hct MCV MCH MCHC RDW RDW Differential Plt Count MPV Immature Gran % (Auto) Neut % (Auto) Lymph % (Auto) [place] % (Auto) Eos % (Auto) Baso % (Auto) Absolute Neuts (auto) Absolute Lymphs (auto) Total Counted PT INR APTT Sodium Potassium Chloride Carbon Dioxide Anion Gap BUN Creatinine Estim Creat Clear Calc Est GFR (MDRD) Af Amer Est GFR (MDRD) Non-Af BUN/Creatinine Ratio Glucose Hemoglobin A1c Pending Calcium Total Bilirubin Direct Bilirubin AST ALT Alkaline Phosphatase Total Protein Albumin Globulin Urine Color Urine Clarity Urine pH Ur Specific [place] Urine Protein Urine Glucose (UA) Urine Ketones Urine Occult Blood Urine Nitrite Urine Bilirubin Urine Urobilinogen Ur Leukocyte Esterase Urine RBC Urine WBC Ur Squamous Epith Cells Urine Bacteria Urine Mucus MRSA (PCR) POC Glucose 04/07/17 04/07/17 04/06/17 05:42 00:01 17:22 POC Glucose 94 113 H 101 Assessment/Plan Active and Suspected Problems Pancytopenia (Acute) Chronic anticoagulation (Acute) on Xarelto Dehydration (Acute) Thrush (Acute) Diabetes mellitus type 2 in nonobese (Acute) Chronic radicular low back pain (Acute) 1) pancytopenia secondary to chemotherapy- no obvious source of infection/sepsis Plan: - Blood culture & urine culture pending - Hold antibiotics unless patient decompensated with fever 2) dysphasia secondary to esophagitis radiation and chemotherapy Plan: - Clear liquid diet - Continue PPI, morphine when necessary, BMX suspension when necessary - Consult Dr. Amaya for EGD & PEG tube placement TODAY 3) dehydration secondary to above Plan: - IV fluid for hydration 4) esophageal cancer Plan: - Hold chemotherapy and radiation treatment until symptomatic improved - Follow-up with Dr. Holman next week. 5) history of chronic bilateral DVTs Plan: - Hold Xarelto because platelet count is dropping from chemotherapy - Lovenox 1mg/kd sq every 24 hours after surgery, hold if platelet less than 50,000 - Restart Xarelto once his platelet count recovered as outpatient.
--- NOTE | 2017-04-07 07:41 | PCM.PROGNOTE ---
Patient Problems: Active and Suspected Problems S/P percutaneous endoscopic gastrostomy (PEG) tube placement (Acute) Duodenitis (Acute) Gastritis (Acute) Hypomagnesemia (Acute) Subjective: 66 YO male with stage 4 esophageal CA admitted for PEG. Also was have intractable pain in the legs and he was placed on a ELEVATOR [employer]END[employer]. Scheduled for PEG this afternoon. Xarelto on Hold. Afebrile since admission. Blood pressure and heart rate are within normal limits. He is 98-99% saturated on room air. All lab was personally reviewed. White blood cell count today is down to 1.5 with 79% neutrophils. ANC is 1185. Hemoglobin is 8.3 and the platelet count is 60,000, down from 82,000 at admission. PT and PTT are normal. BUN is 13 and creatinine is 0.39. Potassium is 3.5 today. Phosphorus and magnesium were normal yesterday. LFTs are normal. Urine had 0-5 WBCs. MRSA swab was negative. Blood sugars are well controlled and he has not required insulin. - Physical Exam General: Alert, Cooperative, - - appear much more comfortable and denies need for any adjustment in the pain regimen. HEENT: Atraumatic, PERRLA Oral: Dry Mucosa - not as bad as at admission Lungs: Clear to auscultation, Normal air movement Cardiovascular: Regular rate, Regular Rhythm, Normal S1, Normal S2, No murmurs, No rub noted, No Gallop Abdomen: Bowel Sounds Present, Soft, Hypoactive Bowel Sounds Extremities: No edema Neurological: Cranial nerves II-XII grossly intact, Neuro grossly intact Vital Signs Temp Pulse Resp BP Pulse Ox 97.7 F L 62 14 114/63 99 04/07/17 07:25 04/07/17 07:25 04/07/17 07:26 04/07/17 07:25 04/07/17 07:26 Oxygen Delivery Method Room Air Weight: 208 lb 8.917 oz Body Mass Index (BMI) 28.3 Intake and Output for Last 24 Hours 04/05/17 04/06/17 04/07/17 23:59 23:59 23:59 Intake Total 1955 / 1955 772 / 772 Output Total 225 / 225 150 / 150 Balance 1731 / 1731 622 / 622 Microbiology Past 72 Hours 04/07/17 03:30 Gram Stain - Preliminary Sputum, Expectorated/Coughed Laboratory Tests Past 24 Hrs 04/06/17 04/06/17 04/06/17 12:30 15:35 15:35 WBC RBC Hgb Hct MCV MCH MCHC RDW RDW Differential Plt Count MPV Immature Gran % (Auto) Neut % (Auto) Lymph % (Auto) [place] % (Auto) Eos % (Auto) Baso % (Auto) Absolute Neuts (auto) Absolute Lymphs (auto) Total Counted PT 15.2 H INR 1.3 APTT 27.7 Sodium Potassium Chloride Carbon Dioxide Anion Gap BUN Creatinine Estim Creat Clear Calc Est GFR (MDRD) Af Amer Est GFR (MDRD) Non-Af BUN/Creatinine Ratio Glucose Hemoglobin A1c Calcium Total Bilirubin Direct Bilirubin AST ALT Alkaline Phosphatase Total Protein Albumin Globulin Urine Color Yellow Urine Clarity Clear Urine pH 6.0 Ur Specific [place] 1.020 Urine Protein 15 H Urine Glucose (UA) Normal Urine Ketones 150 H Urine Occult Blood Negative Urine Nitrite Negative Urine Bilirubin Negative Urine Urobilinogen 4 H Ur Leukocyte Esterase 25 H Urine RBC 0 SEEN Urine WBC 0-5 SEEN Ur Squamous Epith Cells 0 SEEN Urine Bacteria 0 SEEN Urine Mucus 2+ MRSA (PCR) Negative 04/07/17 04/07/17 04/07/17 05:35 05:35 05:35 WBC 1.5 L RBC 2.61 L Hgb 8.3 L Hct 24.4 L MCV 93.5 MCH 31.8 MCHC 34.0 RDW 13.2 RDW Differential 42.1 Plt Count 60 L MPV 8.9 Immature Gran % (Auto) 0.000 Neut % (Auto) 78.6 H Lymph % (Auto) 6.0 L [place] % (Auto) 12.7 H Eos % (Auto) 2.7 Baso % (Auto) 0.0 Absolute Neuts (auto) 1.2 L Absolute Lymphs (auto) 0.09 L Total Counted Not Reportable PT 15.8 H INR 1.3 APTT 28.8 Sodium 140 Potassium 3.5 Chloride 108 H Carbon Dioxide 25.0 Anion Gap 7 BUN 13 Creatinine 0.39 L Estim Creat Clear Calc 210.03 Est GFR (MDRD) Af Amer 284 Est GFR (MDRD) Non-Af 235 BUN/Creatinine Ratio 33.1 H Glucose 94 Hemoglobin A1c Calcium 8.1 L Total Bilirubin 0.40 Direct Bilirubin 0.16 AST 12 L ALT 25 Alkaline Phosphatase 48 Total Protein 5.3 L Albumin 2.6 L Globulin 2.7 Urine Color Urine Clarity Urine pH Ur Specific [place] Urine Protein Urine Glucose (UA) Urine Ketones Urine Occult Blood Urine Nitrite Urine Bilirubin Urine Urobilinogen Ur Leukocyte Esterase Urine RBC Urine WBC Ur Squamous Epith Cells Urine Bacteria Urine Mucus MRSA (PCR) 04/07/17 05:35 WBC RBC Hgb Hct MCV MCH MCHC RDW RDW Differential Plt Count MPV Immature Gran % (Auto) Neut % (Auto) Lymph % (Auto) [place] % (Auto) Eos % (Auto) Baso % (Auto) Absolute Neuts (auto) Absolute Lymphs (auto) Total Counted PT INR APTT Sodium Potassium Chloride Carbon Dioxide Anion Gap BUN Creatinine Estim Creat Clear Calc Est GFR (MDRD) Af Amer Est GFR (MDRD) Non-Af BUN/Creatinine Ratio Glucose Hemoglobin A1c Pending Calcium Total Bilirubin Direct Bilirubin AST ALT Alkaline Phosphatase Total Protein Albumin Globulin Urine Color Urine Clarity Urine pH Ur Specific [place] Urine Protein Urine Glucose (UA) Urine Ketones Urine Occult Blood Urine Nitrite Urine Bilirubin Urine Urobilinogen Ur Leukocyte Esterase Urine RBC Urine WBC Ur Squamous Epith Cells Urine Bacteria Urine Mucus MRSA (PCR) POC Glucose 04/07/17 04/07/17 04/06/17 05:42 00:01 17:22 POC Glucose 94 113 H 101 Assessment/Plan Active and Suspected Problems S/P percutaneous endoscopic gastrostomy (PEG) tube placement (Acute) Duodenitis (Acute) Gastritis (Acute) Hypomagnesemia (Acute) Impressions 1. inanition 2. 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 esophageal CA - surrently being treated with chemo and radiation 4. Former smoker - quit March 2017 5. hx of recurrent DVT's 6. chronic anticoagulation with Warfarin 7. dehydration 8. DM II 9. Thrush 10. chronic back pain with radiation into both legs for PEG today and will discuss with Dr. Amaya when he would like us to begin tube feeds Recheck CBC in the AM Transition to pain meds that can be given via the PEG or transdermally in the next 24-48 hours Code Visit Inpatient E&M: 69296 Subs Hosp L2
[2017-04-07 08:49] LABS: Hemoglobin A1c 6.4 % (4.2-6.3)
[2017-04-07] MEDS: 0.9% Normal Saline 1,000 ML 999 ML IV (09:00)
--- NOTE | 2017-04-07 09:19 | CON.PCM_ITS ---
Problem List (1) Esophageal cancer Status: Chronic Qualifiers: Malignant neoplasm of esophagus location: lower third Qualified Code(s): C15.5 - Malignant neoplasm of lower third of esophagus Comment: follows with Dr. Holman and is getting chemotherapy Reason for Consult Date of Consultation: 04/06/17 History of Present Illness: The patient is a 66 year old M metastatic esophageal cancer who is currently in the course of chemotherapy and radiation treatments area. The patient presented to Dr. Holman's office/medical oncology with overall failure to thrive , poor oral intake and dehydration. The patient has been admitted to [facility] for rehydration and I have been asked for feeding access. the patient underwent upper endoscopy with endoscopic ultrasound in January 2017. This demonstrated: ?Endoscopic Finding : ? ? ?A large, fungating mass with no bleeding and no stigmata of recent ? ? ?bleeding was found in the lower third of the esophagus, 40 cm from the ? ? ?incisors. The mass was partially obstructing and circumferential. This ? ? ?was biopsied with a cold forceps for histology. ? ? ?A large, fungating, circumferential mass with no bleeding and no ? ? ?stigmata of recent bleeding was found in the cardia. ? ? ?No gross lesions were noted in the duodenum. ? ? ?Endosonographic Finding : ? ? ?A hypoechoic mass was found in the lower third of the esophagus. The ? ? ?mass was encountered at 40 cm from the incisors and extended to 47 cm. ? ? ?The GEJ was noted at 42cm. The lesion was circumferential. The ? ? ?endosonographic borders were poorly-defined. The mass measured up to 17 ? ? ?mm in thickness. There was sonographic evidence suggesting invasion into ? ? ?the adventitia (Layer 5). Multiple gastrohepatic, celiac and ? ? ?sapna-tumoral nodes were noted Impression: ? - Partially obstructing, malignant esophageal tumor was ? found in the lower third of the esophagus. Biopsied. ? 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 ? - No gross lesions in the duodenum. ? - A 7cm mass was found in the lower third of the ? esophagus. This was staged T3 N3 Mx by endosonographic ? criteria. Estimated Blood Loss: Estimated blood loss: none. Recommendation: ? ? ? - Await pathology results. Patient's laboratory studies this morning demonstrated pancytopenia. Past Medical History Past Medical History (Chronic Problems): Chronic Problems Esophageal cancer (Chronic) follows with Dr. Holman and is getting chemotherapy Inanition (Chronic) Swallowing difficulty (Chronic) History of recurrent deep vein thrombosis (DVT) (Chronic) GUILLAUME MURPHY's Former cigarette smoker (Chronic) quit in March of 2017 Allergies linagliptin [From Tradjenta] Allergy (Verified 04/06/17 09:50) Rash Home Medications: Ambulatory Orders Medication Instructions Recorded Cholecalciferol (Vitamin D3) 2,000 unit PO DAILY 04/06/17 [Vitamin D3] Citalopram Hydrobromide 20 mg PO DAILY 04/06/17 [Citalopram HBr] Gabapentin [Gralise] 900 mg PO TID 04/06/17 Lisinopril [Zestril] 5 mg PO DAILY 04/06/17 Lovastatin [Mevacor] 40 mg PO DAILY 04/06/17 Metformin HCl [Metformin HCl ER] 500 mg PO DINNER 04/06/17 Omeprazole [Prilosec] 20 mg PO DAILY 04/06/17 Oxycodone HCl/Acetaminophen 1 tablet PO Q6H PRN PRN 04/06/17 [Percocet 10-325 mg Tablet] Promethazine HCl 25 mg IJ Q6H PRN PRN 04/06/17 Rivaroxaban [Xarelto] 20 mg PO DAILY 04/06/17 Sucralfate [Carafate] 1 gm PO BID 04/06/17 Topiramate [Topiramate ER] 100 mg PO QHS 04/06/17 Surgical History: herniorrhaphy - ventral hernia Psychiatric History: No pertinent psych hx - started on Celexa recently by Dr. Holman Lives: Spouse/ Significant Other Smoking Status: Former smoker - quit in March 2017 Tobacco Use: Non-smoker Alcohol: Rare Drugs: None - *Family History Maternal History Items: Cancer - maternal uncle had lung CA Review of Systems Constitutional: Reports: Anorexia, Malaise, Weakness, Weight Change, Fatigue. Denies: Chills, Fever HEENT: Denies: Head Aches, Sinus Congestion, Sinus Drainage Cardiovascular: Denies: Chest Pain, Palpitations Respiratory: Denies: Cough, Shortness of breath at rest, Sputum production Gastrointestinal: Reports: Abdominal Pain. Denies: Nausea, Vomiting Genitourinary: Denies: Dysuria Musculoskeletal: Denies: Joint Pain, Joint Tenderness Skin: Denies: Rash, Wounds Neurological: Denies: Numbness, Tingling, Focal weakness Psychiatric: Denies: Anxiety, Depression, Homicidal Ideations, Suicidal Ideations Hematologic/ Lymphatic: Denies: Easy Bruising, Easy Bleeding Patient Problems: Active and Suspected Problems Pancytopenia (Acute) Chronic anticoagulation (Acute) on Xarelto Dehydration (Acute) Thrush (Acute) Diabetes mellitus type 2 in nonobese (Acute) Chronic radicular low back pain (Acute) - Physical Exam General: Alert, Cooperative Lungs: Clear to auscultation, Normal air movement Cardiovascular: Regular rate, Regular Rhythm Abdomen: Bowel Sounds Present, Soft, Non Tender Vital Signs Temp Pulse Resp BP Pulse Ox 97.7 F L 62 14 114/63 99 04/07/17 07:25 04/07/17 07:25 04/07/17 07:26 04/07/17 07:25 04/07/17 07:26 Oxygen Delivery Method Room Air Weight: 94.6 kg Body Mass Index (BMI) 28.3 Intake and Output for Last 24 Hours 04/05/17 04/06/17 04/07/17 23:59 23:59 23:59 Intake Total 1956 / 1956 772 / 772 Output Total 225 / 225 150 / 150 Balance 1731 / 1731 622 / 622 Microbiology Past 72 Hours 04/07/17 03:30 Gram Stain - Preliminary Sputum, Expectorated/Coughed Laboratory Tests Past 24 Hrs 04/06/17 04/06/17 04/06/17 12:30 15:35 15:35 WBC RBC Hgb Hct MCV MCH MCHC RDW RDW Differential Plt Count MPV Immature Gran % (Auto) Neut % (Auto) Lymph % (Auto) [place] % (Auto) Eos % (Auto) Baso % (Auto) Absolute Neuts (auto) Absolute Lymphs (auto) Total Counted PT 15.2 H INR 1.3 APTT 27.7 Sodium Potassium Chloride Carbon Dioxide Anion Gap BUN Creatinine Estim Creat Clear Calc Est GFR (MDRD) Af Amer Est GFR (MDRD) Non-Af BUN/Creatinine Ratio Glucose Hemoglobin A1c Calcium Total Bilirubin Direct Bilirubin AST ALT Alkaline Phosphatase Total Protein Albumin Globulin Urine Color Yellow Urine Clarity Clear Urine pH 6.0 Ur Specific [place] 1.020 Urine Protein 15 H Urine Glucose (UA) Normal Urine Ketones 150 H Urine Occult Blood Negative Urine Nitrite Negative Urine Bilirubin Negative Urine Urobilinogen 4 H Ur Leukocyte Esterase 25 H Urine RBC 0 SEEN Urine WBC 0-5 SEEN Ur Squamous Epith Cells 0 SEEN Urine Bacteria 0 SEEN Urine Mucus 2+ MRSA (PCR) Negative 04/07/17 04/07/17 04/07/17 05:35 05:35 05:35 WBC 1.5 L RBC 2.61 L Hgb 8.3 L Hct 24.4 L MCV 93.5 MCH 31.8 MCHC 34.0 RDW 13.2 RDW Differential 42.1 Plt Count 60 L MPV 8.9 Immature Gran % (Auto) 0.000 Neut % (Auto) 78.6 H Lymph % (Auto) 6.0 L [place] % (Auto) 12.7 H Eos % (Auto) 2.7 Baso % (Auto) 0.0 Absolute Neuts (auto) 1.2 L Absolute Lymphs (auto) 0.09 L Total Counted Not Reportable PT 15.8 H INR 1.3 APTT 28.8 Sodium 140 Potassium 3.5 Chloride 108 H Carbon Dioxide 25.0 Anion Gap 7 BUN 13 Creatinine 0.39 L Estim Creat Clear Calc 210.03 Est GFR (MDRD) Af Amer 284 Est GFR (MDRD) Non-Af 235 BUN/Creatinine Ratio 33.1 H Glucose 94 Hemoglobin A1c Calcium 8.1 L Total Bilirubin 0.40 Direct Bilirubin 0.16 AST 12 L ALT 25 Alkaline Phosphatase 48 Total Protein 5.3 L Albumin 2.6 L Globulin 2.7 Urine Color Urine Clarity Urine pH Ur Specific [place] Urine Protein Urine Glucose (UA) Urine Ketones Urine Occult Blood Urine Nitrite Urine Bilirubin Urine Urobilinogen Ur Leukocyte Esterase Urine RBC Urine WBC Ur Squamous Epith Cells Urine Bacteria Urine Mucus MRSA (PCR) 04/07/17 05:35 WBC RBC Hgb Hct MCV MCH MCHC RDW RDW Differential Plt Count MPV Immature Gran % (Auto) Neut % (Auto) Lymph % (Auto) [place] % (Auto) Eos % (Auto) Baso % (Auto) Absolute Neuts (auto) Absolute Lymphs (auto) Total Counted PT INR APTT Sodium Potassium Chloride Carbon Dioxide Anion Gap BUN Creatinine Estim Creat Clear Calc Est GFR (MDRD) Af Amer Est GFR (MDRD) Non-Af BUN/Creatinine Ratio Glucose Hemoglobin A1c 6.4 H Calcium Total Bilirubin Direct Bilirubin AST ALT Alkaline Phosphatase Total Protein Albumin Globulin Urine Color Urine Clarity Urine pH Ur Specific [place] Urine Protein Urine Glucose (UA) Urine Ketones Urine Occult Blood Urine Nitrite Urine Bilirubin Urine Urobilinogen Ur Leukocyte Esterase Urine RBC Urine WBC Ur Squamous Epith Cells Urine Bacteria Urine Mucus MRSA (PCR) POC Glucose 04/07/17 04/07/17 04/06/17 05:42 00:01 17:22 POC Glucose 94 113 H 101 Assessment/Plan Active and Suspected Problems Pancytopenia (Acute) Chronic anticoagulation (Acute) on Xarelto Dehydration (Acute) Thrush (Acute) Diabetes mellitus type 2 in nonobese (Acute) Chronic radicular low back pain (Acute) dysphagia, esophageal cancer,-, weight loss, failure to thrive-need for feeding access I plan to perform an EGD with PEG tube placement. the patient herself the risks , benefits, possible complications and alternatives and agrees to the procedure. Since the patient is neutropenic-will use a broader spectrum antibiotic for his PEG tube placement-Zosyn. This decision was made in concert with Dr. Manda markham. The patient is thrombocytopenic with platelet count of 60,000. Feel this should be adequate, but we will plan to type and screen him and if he does have bleeding issues. We will plan to transfuse platelets at that time. Spoke with enterostomal therapy for teaching purposes for family for PEG tube care.
[2017-04-07] MEDS: Potassium Chloride 10 MEQ in Dext 5%-0.45% NS 1,000 ML 150 MEQ IV ×2 (10:31→20:44)
--- NOTE | 2017-04-07 10:49 | RAD_ITS ---
STUDY: X-RAY CHEST REASON FOR EXAM: Male, 66 years old. History of distal esophageal mass. TECHNIQUE: Single AP portable view of the chest. COMPARISON: Comparison is made with prior study dated April 06, 2017. FINDINGS: A left-sided portacatheter is seen. The tip is in the proximal portion of the superior vena cava. Since prior study, there has been a mild increase in left basilar markings suggestive of a left basilar atelectasis. There is no demonstrated pleural abnormality. Normal size heart. Normal mediastinum and naveed. Normal visualized pulmonary arteries. Normal visualized aortic arch and descending thoracic aorta. There are degenerative changes of the visualized thoracic spine. Normal visualized ribs, clavicles, and shoulders. There is no demonstrated abnormality of the visualized soft tissue structures of the upper abdomen. RAD/Chest 1 View (Portable) IMPRESSION: Mild increased markings at the left lung base suggestive of left basilar atelectasis. Electronically Signed: Leopoldo Tang MD at 15:48 EST Tel [phone], Service support ,
[2017-04-07 10:56] LABS: Bedside Glucose 89 mg/dL (70-110)
--- NOTE | 2017-04-07 12:21 | OP.PCM_ITS ---
Problem List (1) Esophageal cancer Status: Chronic Qualifiers: Malignant neoplasm of esophagus location: lower third Qualified Code(s): C15.5 - Malignant neoplasm of lower third of esophagus Comment: follows with Dr. Holman and is getting chemotherapy Report of Operation Date of Procedure: 04/07/17 Pre-Operative Diagnosis: esophageal cancer, need for feeding access Post-Operative Diagnosis: Gastritis, successful PEG placement, tumor in distal esophagus, ?esopahgeal candidiasis Surgery/Procedure Performed:: EGD with Biopsy and PEG placement Type of Anesthesia:: MAC Anesthesiologist: Debbie Lenz - ASA4 Specimen's removed: antral bx for H. pylori and path Description of Procedure: The patient was brought to the endoscopy suite. Sign in was performed verifying patient, site, planned procedure, critical nursing information, the patient was monitored with cardiac, pulse oximetric, and blood pressure monitoring devices. Monitored anesthetic care was provided for sedation. the patient is currently undergoing chemotherapy and radiotherapy for his esophageal cancer. He was found to be leukopenic and thrombocytopenic. Due to his relative leukopenia, we elected to use Zosyn 4.[address] of Ancef due to his increased risk of infection. the patient has a platelet count of 60, 000. He was typed and screened in the event that he had postprocedure bleeding at which point, platelets would be given. Following IV sedation and after the oropharynx was sprayed with Cetacaine spray , a video gastroscope was inserted in the oropharynx and advanced down the esophagus without difficulty. The scope was advanced through the stomach, through the pylorus through the duodenum to the proximal jejunum. the scope actually was able be advanced easily beyond the tumor in the distal esophagus. The tumor was somewhat friable and there was slight oozing but no active bleeding noted from the esophageal cancer. The stomach demonstrated gastritis and the duodenum demonstrated mild duodenitis. A biopsy was obtained for H. pylori and pathology from the antral region. The stomach. The esophagus proximal to the tumor demonstrated changes felt to be consistent with Ayanna infection. No biopsies were obtained since the patient is already on Diflucan. Following this, 2 finger breaths below the left costal margin. A site was marked. The demonstrated indentation over the anterior aspect of the body of the stomach. The site was cleaned with Betadine. Local anesthetic was injected and a needle inserted into the stomach under endoscopic guidance. A wire was placed through the needle and grasped with a snare, brought up to the oropharynx. A Ponsky pull-type tube was then affixed to the wire. A small incision made on the anterior skin and the Ponsky pull-type tube was brought to the stomach and secured to the anterior abdominal wall. The wire was cut. A buttress was placed and the catheter secured at 4.5 cm. A roller clamp and feeding adapter applied. Repeat upper endoscopy was performed. This demonstrated good positioning of the mushroom of the feeding tube with no signs of bleeding. The remainder of the stomach and the esophagus were unremarkable The patient tolerated the procedure well and was brought to recovery in stable condition
--- NOTE | 2017-04-07 13:11 | NURSING ---
Was asked by Dr Amaya this am to review PEG tube care with patient and daughter. Pt was getting ready to be taken down for the PEG tube when this nurse took the PEG booklet in to the patient. Daughter present so booklet was given to her at that time. Daughter states she would look through it while the patient was in for the procedure. Will do more teaching as needed once the tube is able to be used, most likely tomorrow. Daughter very appreciative.
[2017-04-07] MEDS: Jevity 1.5 1,000 ML 20 ML GT (15:49)
[2017-04-07 16:30] LABS: Hematocrit 24.6 % (40-54); Hemoglobin 8.4 g/dl (13.0-16.5); Mean Corp Hgb Conc 34.1 g/gl (32-36); Mean Corpuscular Hgb 31.6 pg (27.0-32.0); Mean Corpuscular Volume 92.5 fL (80-94); Platelet Count 53 K/mm3 (150-450); RBC Distribution Width CV 13.8 % (11.6-14.6); RBC Distribution Width SD 44.3 fl (35.1-43.9); Red Blood Count 2.66 M/mm3 (4.6-6.2); Scan Indicated on CBC? Y/N NO; White Blood Count 1.6 K/mm3 (4.4-11.0)
[2017-04-07 18:11] LABS: Bedside Glucose 126 mg/dL (70-110)
[2017-04-07 23:36] LABS: Bedside Glucose 181 mg/dL (70-110)
[2017-04-08] VITALS (7 sets, daily range): BP systolic 105–122; BP diastolic 59–68; PULSE 74–98; RESP 18; TEMP 36.8–37.1; O2SAT 95–98
[2017-04-08] MEDS: oxyCODONE 5 MG Tablet 10 MG GT ×3 (03:39→22:06)
[2017-04-08] MEDS: Potassium Chloride 10 MEQ in Dext 5%-0.45% NS 1,000 ML 150 MEQ IV (03:47)
[2017-04-08 05:38] LABS: Absolute Lymphocyte Count 0.06 X10^3/ul (0.83-4.51); Absolute Neutrophil Count 1.4 X10^3/uL (2.0-7.7); Eosinophil# 0.02 X10^3/uL; Eosinophils% 1.3 % (0-5); Hematocrit 22.1 % (40-54); Hemoglobin 7.9 g/dl (13.0-16.5); Lymphocyte # 0.06 X10^3/ul (4.0); Lymphocyte % 3.8 % (19-41); Mean Corp Hgb Conc 35.7 g/gl (32-36); Mean Corpuscular Hgb 33.5 pg (27.0-32.0); Mean Corpuscular Volume 93.6 fL (80-94); Mean Platelet Vol. 9.7 fl (6.2-12.0); Monocyte# 0.15 X10^3/uL; Monocyte% 9.4 % (0-10); Neutrophil # 1.37 X10^3/uL (2.7-7.7); Neutrophil % 85.5 % (47-70); Platelet Count 59 K/mm3 (150-450); RBC Distribution Width CV 13.1 % (11.6-14.6); RBC Distribution Width SD 41.2 fl (35.1-43.9); Red Blood Count 2.36 M/mm3 (4.6-6.2); White Blood Count 1.6 K/mm3 (4.4-11.0)
[2017-04-08 05:39] LABS: Differential Indicated SCAN CRITERIA MET; POSITIVE COUNT NO; POSITIVE DIFFERENTIAL YES; POSITIVE MORPHOLOGY NO
[2017-04-08 05:54] LABS: BUN 7 mg/dL (7-18); BUN/Creat Ratio 13.7 RATIO (10-20); Calcium,Total 7.5 mg/dL (8.5-10.1); Chloride 106 mmol/L (98-107); Creatinine, Serum 0.51 mg/dL (0.70-1.30); EST Glomerular Filtration Rate 173 mL/min (>60); Est Glom Filt Rate - Afr Amer 210 mL/min (>60); Estimated Creatinine Clearance 160.61 ml/min; Glucose 187 mg/dL (70-110); Magnesium 1.5 mg/dL (1.6-2.6); Phosphorus 3.1 mg/dL (2.5-4.9); Potassium 3.4 mmol/L (3.5-5.1); Sodium Level 138 mmol/L (136-145)
[2017-04-08 05:55] LABS: Anion Gap 6 (5-15)
--- NOTE | 2017-04-08 06:19 | PN.SURG_ITS ---
Patient Problems: Active and Suspected Problems Pancytopenia (Acute) Chronic anticoagulation (Acute) on Xarelto Dehydration (Acute) Thrush (Acute) Diabetes mellitus type 2 in nonobese (Acute) Chronic radicular low back pain (Acute) Objective: hungry, no residuals with feeds at 60cc - Physical Exam General: Alert, Oriented x3 Lungs: Clear to auscultation, Normal air movement Abdomen: Soft, Non Tender, - - PEG site clean Vital Signs Temp Pulse Resp BP Pulse Ox 98.6 F 74 18 106/59 L 95 04/08/17 03:30 04/08/17 03:48 04/08/17 03:48 04/08/17 03:30 04/08/17 03:48 Oxygen Delivery Method Room Air Weight: 94.6 kg Body Mass Index (BMI) 28.3 Intake and Output for Last 24 Hours 04/06/17 04/07/17 04/08/17 23:59 23:59 23:59 Intake Total 1956 / 1956 3885 / 3885 2841 / 2841 Output Total 225 / 225 850 / 850 1475 / 1475 Balance 1731 / 1731 3035 / 3035 1366 / 1366 Microbiology Past 72 Hours 04/07/17 03:30 Gram Stain - Final Sputum, Expectorated/Coughed Respiratory Culture - Final Laboratory Tests Past 24 Hrs 04/07/17 04/07/17 04/07/17 05:35 05:35 05:35 WBC RBC Hgb Hct MCV MCH MCHC RDW RDW Differential Plt Count MPV Immature Gran % (Auto) Neut % (Auto) Lymph % (Auto) [place] % (Auto) Eos % (Auto) Baso % (Auto) Absolute Neuts (auto) Absolute Lymphs (auto) Total Counted Not Reportable Sodium 140 Potassium 3.5 Chloride 108 H Carbon Dioxide 25.0 Anion Gap 7 BUN 13 Creatinine 0.39 L Estim Creat Clear Calc 210.03 Est GFR (MDRD) Af Amer 284 Est GFR (MDRD) Non-Af 235 BUN/Creatinine Ratio 33.1 H Glucose 94 Hemoglobin A1c 6.4 H Calcium 8.1 L Phosphorus Magnesium Total Bilirubin 0.40 Direct Bilirubin 0.16 AST 12 L ALT 25 Alkaline Phosphatase 48 Total Protein 5.3 L Albumin 2.6 L Globulin 2.7 Blood Type Antibody Screen 04/07/17 04/07/17 04/07/17 09:20 09:50 16:05 WBC 1.6 L RBC 2.66 L Hgb 8.4 L Hct 24.6 L MCV 92.5 MCH 31.6 MCHC 34.1 RDW 13.8 RDW Differential 44.3 H Plt Count 53 L MPV 10.0 Immature Gran % (Auto) Neut % (Auto) Lymph % (Auto) [place] % (Auto) Eos % (Auto) Baso % (Auto) Absolute Neuts (auto) Absolute Lymphs (auto) Total Counted Sodium Potassium Chloride Carbon Dioxide Anion Gap BUN Creatinine Estim Creat Clear Calc Est GFR (MDRD) Af Amer Est GFR (MDRD) Non-Af BUN/Creatinine Ratio Glucose Hemoglobin A1c Calcium Phosphorus Magnesium Total Bilirubin Direct Bilirubin AST ALT Alkaline Phosphatase Total Protein Albumin Globulin Blood Type Cancelled A POSITIVE Antibody Screen Cancelled NEGATIVE 04/08/17 04/08/17 05:25 05:25 WBC 1.6 L RBC 2.36 L Hgb 7.9 L Hct 22.1 L MCV 93.6 MCH 33.5 H MCHC 35.7 RDW 13.1 RDW Differential 41.2 Plt Count 59 L MPV 9.7 Immature Gran % (Auto) 0.000 Neut % (Auto) 85.5 H Lymph % (Auto) 3.8 L [place] % (Auto) 9.4 Eos % (Auto) 1.3 Baso % (Auto) 0.0 Absolute Neuts (auto) 1.4 L Absolute Lymphs (auto) 0.06 L Total Counted Pending Sodium 138 Potassium 3.4 L Chloride 106 Carbon Dioxide 26.0 Anion Gap 6 BUN 7 Creatinine 0.51 L Estim Creat Clear Calc 160.61 Est GFR (MDRD) Af Amer 210 Est GFR (MDRD) Non-Af 173 BUN/Creatinine Ratio 13.7 Glucose 187 H Hemoglobin A1c Calcium 7.5 L Phosphorus 3.1 Magnesium 1.5 L Total Bilirubin Direct Bilirubin AST ALT Alkaline Phosphatase Total Protein Albumin Globulin Blood Type Antibody Screen POC Glucose 04/07/17 04/07/17 04/07/17 23:21 18:03 10:49 POC Glucose 181 H 126 H 89 Assessment/Plan Active and Suspected Problems Pancytopenia (Acute) Chronic anticoagulation (Acute) on Xarelto Dehydration (Acute) Thrush (Acute) Diabetes mellitus type 2 in nonobese (Acute) Chronic radicular low back pain (Acute) dysphagia, esophageal cancer,-, weight loss, failure to thrive-need for feeding access s/p - EGD with PEG tube placement. enterostomal therapy spoke with family for teaching purposes for PEG tube care On PPI for gastritis,.
[2017-04-08 07:31] LABS: Bedside Glucose 194 mg/dL (70-110)
[2017-04-08 11:16] LABS: Bedside Glucose 139 mg/dL (70-110)
--- NOTE | 2017-04-08 12:02 | CASEMGMT ---
Addendum entered by Yoandy Mark 04/08/17 12:33: Call to Dr. Amaya's nurse Emelia. Explained pt will not have PCP to sign HHS orders in [place]. Per Emelia, Dr. Amaya will sign HHS orders when faxed from [facility]. Original Note: Addendum entered by Yoandy Mark 04/08/17 12:31: [facility] cannot staff pt. Call to [facility] PH: [phone], FX: [phone]. They will be able to staff either Tuesday or Tuesday. their phone # placed on Dc appointments. Information faxed to them. Original Note: Addendum entered by Yoandy Mark 04/08/17 12:06: Jevity 1.5- 4 bottles will be available in retail pharmacy to be purchased for when pt goes home. Approximately $10/bottle. Pt notified, and he will have his daughter bead picker. Belkys MORA RN AC Original Note: DC PLAN: Home with HHS -Intro role of CM to patient in room and daughter via phone. Pt plans to stay with daughter in [place] on dc. -Tube feed and supply script faxed to [facility]. Spoke w/Lala to notify of referral. -Script for G-tube dressing will be per nursing and can be faxed to [facility]. All delivery for supplies and TF will be on Tuesday per Lala. She will have pile driver operator drop of syringes for pt to use until Tuesday. -Call/referral to [facility]. Awaiting their approval for home health to start tuesday or tuesday. Belkys REYNAGA
[2017-04-08] MEDS: Jevity 1.5. 1,000 ML Bottle 240 ML GT (13:24)
--- NOTE | 2017-04-08 13:40 | CASEMGMT ---
Long discussion teaching given to daughter re: home health agency, phone#, [employer] medical supplier and phone# Dr. Amaya's office #. Daughter is receiving teaching for administration of PEG tube feed. FARIHA CONWAY notified her of tube feeds @ [facility] retail pharmacy to purchase until delivery comes on tuesday. Card with FARIHA CONWAY phone number given to her. Belkys TUBBSN FARIHA ACM
--- NOTE | 2017-04-08 14:17 | NURSING ---
In to review PEG tube care with patient and family. cleansed around the bumper with soap and water and pat dry. placed 1 split 2x2 gauze and secured with blue tape. patient aware to report pain, purulent drainage, redness, etc. around the PEG tube. the customs brokerage manager has reviewed nutritional recommendations with the amount of tube feed, etc. with patient and daughter. all questions answered at this time.
--- NOTE | 2017-04-08 16:57 | NURSING ---
DIETARY OFFICE CALLED AND PT HAD REQUESTED MACARONI AND CHEESE WITH [employer]. PT WAS NOTIFIED THAT MEAL ORDERS ARE FOR PUREE AND MECHANICAL SOFT PER SPEECH THERAPY RECOMMENDATIONS. PT STATED TO DIETARY STAFF THAT HE DOES NOT WANT THE CHICKEN TENDERS TO BE MECHANICAL SOFT NOR MAC AND CHEESE. THIS NURSE INTO REVIEW WITH PATIENT HIS CURRENT DIET ORDERS PER SPEECH THERAPY RECOMMENDATIONS. PT STATES HE DID NOT UNDERSTAND THAT HE THOUGHT HE WAS ABLE TO EAT ANYTHING HE PLEASES. DAUGHTER AT BEDSIDE AND STATES HER UNDERSTANDING IS THE SAME THE SPEECH THERAPY RECOMMENDS. PT IS ADVISED THAT HIS RISK FOR ASPIRATION IF HE CHOOSE TO NOT COMPLY WITH SPEECH THERAPY RECOMMENDATION.
[2017-04-08 18:26] LABS: Bedside Glucose 163 mg/dL (70-110)
--- NOTE | 2017-04-08 18:55 | PCM.PROGNOTE ---
Patient Problems: Active and Suspected Problems Pancytopenia (Acute) Chronic anticoagulation (Acute) on Xarelto Dehydration (Acute) Thrush (Acute) Diabetes mellitus type 2 in nonobese (Acute) Chronic radicular low back pain (Acute) Subjective: Post operative day #1 Afebrile since admission Vital signs are stable Pain has improved significantly with a fentanyl patch and OxyIR for breakthrough pain. Has not had to have any hydromorphone or Roxanol. Has been transitioned from continuous Jevity 1.5 to bolus feedings. He was seen by the speech therapist today and a mechanical soft, nectar thickened liquid diet was recommended. Pt wants to trial chicken nuggets and mac and cheese but, I warned him the nuggets will likely cause him significant pain....he says he probably will not eat more than a few bites. He seems to think the antifungal is helping with the thrush and the soreness in his mouth. He follows with a Dr. Meraz for pain management. Has been on Percocet but, oncology wants to avoid Acetaminophen. He will likely need a long acting pain reliever going forward since he is going to have more radiation and he has stage 4 esophageal CA. - Physical Exam General: Alert, Oriented x3, Cooperative, - - looks uncomfortable and is requesting main medication HEENT: Atraumatic, PERRLA, EOMI Oral: Dry Mucosa, - - thrush is improving Neck: No JVD Lungs: Clear to auscultation Cardiovascular: Regular rate, Regular Rhythm, Normal S1, Normal S2, No Gallop Abdomen: Bowel Sounds Present, Soft, Non Tender, Non-Distended, - - peg site is without erythema or DC. Tolerating the bolus feedings Extremities: No clubbing, No cyanosis, No edema Skin: No rashes, No breakdown Neurological: Cranial nerves II-XII grossly intact, Neuro grossly intact Psych/Mental Status: Appropriate Vital Signs Temp Pulse Resp BP Pulse Ox 98.7 F 89 18 116/65 97 04/08/17 15:26 04/08/17 15:26 04/08/17 15:26 04/08/17 15:26 04/08/17 15:26 Oxygen Delivery Method Room Air Weight: 208 lb 8.917 oz Body Mass Index (BMI) 28.3 Intake and Output for Last 24 Hours 01/04/07/17 04/08/17 23:59 23:59 23:59 Intake Total 1955 / 1955 3885 / 3885 5147 / 5147 Output Total 225 / 225 850 / 850 1675 / 1675 Balance 1731 / 1731 3035 / 3035 3472 / 3472 Microbiology Past 72 Hours 04/07/17 03:30 Gram Stain - Final Sputum, Expectorated/Coughed Respiratory Culture - Final 04/06/17 15:35 Urine Culture - Final Urine, Clean Catch Culture exhibits no growth. Laboratory Tests Past 24 Hrs 04/08/17 04/08/17 05:25 05:25 WBC 1.6 L RBC 2.36 L Hgb 7.9 L Hct 22.1 L MCV 93.6 MCH 33.5 H MCHC 35.7 RDW 13.1 RDW Differential 41.2 Plt Count 59 L MPV 9.7 Immature Gran % (Auto) 0.000 Neut % (Auto) 85.5 H Lymph % (Auto) 3.8 L [place] % (Auto) 9.4 Eos % (Auto) 1.3 Baso % (Auto) 0.0 Absolute Neuts (auto) 1.4 L Absolute Lymphs (auto) 0.06 L Total Counted Not Reportable Sodium 138 Potassium 3.4 L Chloride 106 Carbon Dioxide 26.0 Anion Gap 6 BUN 7 Creatinine 0.51 L Estim Creat Clear Calc 160.61 Est GFR (MDRD) Af Amer 210 Est GFR (MDRD) Non-Af 173 BUN/Creatinine Ratio 13.7 Glucose 187 H Calcium 7.5 L Phosphorus 3.1 Magnesium 1.5 L POC Glucose 04/08/17 04/08/17 04/08/17 18:22 11:06 05:26 POC Glucose 163 H 139 H 194 H 04/07/17 23:21 POC Glucose 181 H Assessment/Plan Active and Suspected Problems Pancytopenia (Acute) Chronic anticoagulation (Acute) on Xarelto Dehydration (Acute) Thrush (Acute) Diabetes mellitus type 2 in nonobese (Acute) Chronic radicular low back pain (Acute) Impressions 1. inanition 2. 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 esophageal CA - surrently being treated with chemo and radiation 4. Former smoker - quit March 2017 5. hx of recurrent DVT's 6. chronic anticoagulation with Warfarin 7. dehydration 8. DM II 9. Thrush 10. chronic back pain with radiation into both legs Continue the Fentanyl patch and the OXY IR for breakthrough pain....will try and reach his pain management doctor tomorrow to update him. Probable DC tomorrow if he continues to tolerate the bolus feedings. Code Visit Inpatient E&M: 71493 Subs Hosp L2
[2017-04-08] MEDS: NYSTATIN 500,000 UNIT/5 ML UDC 500000 UNIT PO ×2 (19:09→21:50)
[2017-04-09 00:11] LABS: Bedside Glucose 172 mg/dL (70-110)
[2017-04-09 03:10] VITALS: BP 109/71; PULSE 76; RESP 18; TEMP 37; O2SAT 97
[2017-04-09 03:23] VITALS: PULSE 76; RESP 18; O2SAT 97
[2017-04-09 06:26] LABS: Bedside Glucose 113 mg/dL (70-110)
[2017-04-09] MEDS: oxyCODONE 5 MG Tablet 10 MG GT ×3 (06:33→14:31)
[2017-04-09] MEDS: Jevity 1.5. 1,000 ML Bottle 240 ML GT ×2 (06:34→10:34)
[2017-04-09 08:10] VITALS: O2SAT 99
--- NOTE | 2017-04-09 09:31 | NURSING ---
Flushed Port with 10cc Sterile Saline and then pulled back 10cc of Blood, discarded and withdrew another 10cc of blood and sent to lab per orders.
[2017-04-09 09:41] LABS: Absolute Lymphocyte Count 0.08 X10^3/ul (0.83-4.51); Absolute Neutrophil Count 1.8 X10^3/uL (2.0-7.7); Basophil# 0.01 X10^3/uL; Basophil% 0.5 % (0-1); Eosinophil# 0.03 X10^3/uL; Eosinophils% 1.4 % (0-5); Hematocrit 25.2 % (40-54); Hemoglobin 8.6 g/dl (13.0-16.5); Lymphocyte # 0.08 X10^3/ul (4.0); Lymphocyte % 3.7 % (19-41); Mean Corp Hgb Conc 34.1 g/gl (32-36); Mean Corpuscular Hgb 32.1 pg (27.0-32.0); Mean Platelet Vol. 9.5 fl (6.2-12.0); Monocyte# 0.25 X10^3/uL; Monocyte% 11.7 % (0-10); Neutrophil # 1.77 X10^3/uL (2.7-7.7); Neutrophil % 82.7 % (47-70); Platelet Count 56 K/mm3 (150-450); RBC Distribution Width CV 13.7 % (11.6-14.6); RBC Distribution Width SD 42.7 fl (35.1-43.9); Red Blood Count 2.68 M/mm3 (4.6-6.2); White Blood Count 2.1 K/mm3 (4.4-11.0)
[2017-04-09 09:42] LABS: Differential Indicated SCAN CRITERIA MET; POSITIVE COUNT NO; POSITIVE DIFFERENTIAL YES; POSITIVE MORPHOLOGY NO
[2017-04-09 09:46] LABS: Anion Gap 8 (5-15); BUN 7 mg/dL (7-18); BUN/Creat Ratio 12.9 RATIO (10-20); Calcium,Total 7.8 mg/dL (8.5-10.1); Chloride 105 mmol/L (98-107); Creatinine, Serum 0.54 mg/dL (0.70-1.30); EST Glomerular Filtration Rate 162 mL/min (>60); Est Glom Filt Rate - Afr Amer 196 mL/min (>60); Estimated Creatinine Clearance 151.69 ml/min; Glucose 181 mg/dL (74-106); Magnesium 1.8 mg/dL (1.6-2.6); Phosphorus 2.5 mg/dL (2.5-4.9); Potassium 3.9 mmol/L (3.5-5.1); Sodium Level 138 mmol/L (136-145)
[2017-04-09 10:00] VITALS: BP 122/69; PULSE 80; RESP 16; TEMP 36.6; O2SAT 100
[2017-04-09] MEDS: NYSTATIN 500,000 UNIT/5 ML UDC 500000 UNIT PO ×2 (10:13→12:55)
--- NOTE | 2017-04-09 12:08 | CASEMGMT ---
Physician requested copay amount for Lovenox. Call to [facility] pharmacy- copay is $95.00. Pt notified. Belkys TUBBSN RN ACM
--- NOTE | 2017-04-09 13:07 | PCM.DC ---
- Discharge Diagnoses Current Active Problems: Current Active and Chronic Problems Esophageal cancer (Chronic) follows with Dr. Holman and is getting chemotherapy Pancytopenia (Acute) Inanition (Chronic) Swallowing difficulty (Chronic) Chronic anticoagulation (Acute) on Xarelto History of recurrent deep vein thrombosis (DVT) (Chronic) GUILLAUME MURPHY's Former cigarette smoker (Chronic) quit in March of 2017 Dehydration (Acute) Thrush (Acute) Diabetes mellitus type 2 in nonobese (Acute) Chronic radicular low back pain (Acute) You will use the following diet at home:: Regular Your food should be the consistency of: Mechanical soft (ground) Your liquids should be the consistency of: [place] Thick Discharge Activity: - - Activity as tolerated. AVOID anyone who is ill. May shower in (days): 1 Call your doctor if you observe: Fever of 101 or Higher, Shortness of breath, Dizziness, Fainting spells, Swelling in the ankles, Chest pain, Uncontrolled pain, - - vomiting Additional Instructions: I have changed some of your medications so that they can be crushed and given via the PEG tube and you will not have to swallow them. I am giving you a months worth of the Fentanyl aptches and 120 OXY IR tablets. the OxyIR can be crushed and given through the PEG tube. Keep an eye on the PEG site....if there is any smelly discharge or the area around the PEG gets red or swollen call Dr. Amaya or come to the ER. You will need to call Dr. Matamoros on Tuesday and tell him about the changes in the pain medication. His office was closed when I called. My cell phone # is [phone] if he wants to talk to me. The platelets in your blood are low from the chemotherapy. The platelets help to clot the blood and Dr. Abad does not want you taking the Xarelto until the platelet count is improved. you will be taking the Lovenox shot once a day until Dr. Holman tells you it is OK to go on the Xarelto again. Follow up with Dr. Holman this week. Pending Tests on Discharge: H. Pylori test Allergies/Adverse Reactions: Allergies linagliptin [From Tradjenta] Allergy (Verified 04/06/17 09:50) Rash Medications to take at Discharge Promethazine HCl 25 mg IJ Q6H PRN PRN 04/06/17 Citalopram Hydrobromide [Citalopram HBr] 20 mg GT DAILY #0 04/09/17 Enoxaparin Sodium [Lovenox] 100 mg SQ DAILY #10 syringe 04/09/17 Famotidine [Pepcid] 20 mg GT BID #60 tab 04/09/17 Fentanyl [Duragesic] 50 mcg TRANSDERM. Q3D #10 patch 04/09/17 Jevity 1.5 240 ml GT UD #44 bottle 04/09/17 Lisinopril [Zestril] 5 mg GT DAILY #0 tab 04/09/17 Lovastatin [Mevacor] 40 mg GT DAILY #0 04/09/17 Metformin HCl 500 mg GT BID #60 tab 04/09/17 Nystatin 500,000 unit PO 4X/DAY #280 udc 04/09/17 Oxycodone [Oxyir] 10 mg GT Q4H PRN PRN #120 tab 04/09/17 Sucralfate [Carafate] 1 gm PO 4X/DAY #120 udc 04/09/17 Topiramate [Topiramate ER] 100 mg GT QHS #0 04/09/17 The following prescriptions were given: Oxycodone [Oxyir] 10 mg GT Q4H PRN PRN #120 tab PRN Reason: Breakthrough Pain (>4/10) Enoxaparin Sodium [Lovenox] 100 mg SQ DAILY #10 syringe Fentanyl [Duragesic] 50 mcg TRANSDERM. Q3D #10 patch Jevity 1.5 240 ml GT UD #44 bottle Famotidine [Pepcid] 20 mg GT BID #60 tab Metformin HCl 500 mg GT BID #60 tab Nystatin 500,000 unit PO 4X/DAY #280 udc Sucralfate [Carafate] 1 gm PO 4X/DAY #120 udc Primary Care Physician: Awais Holman DO [STAFF PHYSICIAN] - Please follow up with your Primary Care Physician in: this week Please Follow Up With: Manuel When: Tuesday or Tuesday Please Follow Up With: Cuídate Please Follow Up With: Britton Amaya MD When: this week call the office Tuesday Proposed Discharge Date: 04/09/17
--- NOTE | 2017-04-09 13:18 | DCINST_ITS ---
- Discharge Diagnoses Current Active Problems: Current Active and Chronic Problems Esophageal cancer (Chronic) follows with Dr. Holman and is getting chemotherapy Pancytopenia (Acute) Inanition (Chronic) Swallowing difficulty (Chronic) Chronic anticoagulation (Acute) on Xarelto History of recurrent deep vein thrombosis (DVT) (Chronic) GUILLAUME MURPHY's Former cigarette smoker (Chronic) quit in March of 2017 Dehydration (Acute) Thrush (Acute) Diabetes mellitus type 2 in nonobese (Acute) Chronic radicular low back pain (Acute) You will use the following diet at home:: Regular Your food should be the consistency of: Mechanical soft (ground) Your liquids should be the consistency of: [place] Thick Discharge Activity: - - Activity as tolerated. AVOID anyone who is ill. May shower in (days): 1 Call your doctor if you observe: Fever of 101 or Higher, Shortness of breath, Dizziness, Fainting spells, Swelling in the ankles, Chest pain, Uncontrolled pain, - - vomiting Additional Instructions: I have changed some of your medications so that they can be crushed and given via the PEG tube and you will not have to swallow them. I am giving you a months worth of the Fentanyl aptches and 120 OXY IR tablets. the OxyIR can be crushed and given through the PEG tube. Keep an eye on the PEG site....if there is any smelly discharge or the area around the PEG gets red or swollen call Dr. Amaya or come to the ER. You will need to call Dr. Matamoros on Tuesday and tell him about the changes in the pain medication. His office was closed when I called. My cell phone # is if he wants to talk to me. The platelets in your blood are low from the chemotherapy. The platelets help to clot the blood and Dr. Abad does not want you taking the Xarelto until the platelet count is improved. you will be taking the Lovenox shot once a day until Dr. Holman tells you it is OK to go on the Xarelto again. Follow up with Dr. Holman this week. Pending Tests on Discharge: H. Pylori test Allergies/Adverse Reactions: Allergies linagliptin [From Tradjenta] Allergy (Verified 04/06/17 09:50) Rash Medications to take at Discharge Promethazine HCl 25 mg IJ Q6H PRN PRN 04/06/17 Citalopram Hydrobromide [Citalopram HBr] 20 mg GT DAILY #0 04/09/17 Enoxaparin Sodium [Lovenox] 100 mg SQ DAILY #10 syringe 04/09/17 Famotidine [Pepcid] 20 mg GT BID #60 tab 04/09/17 Fentanyl [Duragesic] 50 mcg TRANSDERM. Q3D #10 patch 04/09/17 Jevity 1.5 240 ml GT UD #44 bottle 04/09/17 Lisinopril [Zestril] 5 mg GT DAILY #0 tab 04/09/17 Lovastatin [Mevacor] 40 mg GT DAILY #0 04/09/17 Metformin HCl 500 mg GT BID #60 tab 04/09/17 Nystatin 500,000 unit PO 4X/DAY #280 udc 04/09/17 Oxycodone [Oxyir] 10 mg GT Q4H PRN PRN #120 tab 04/09/17 Sucralfate [Carafate] 1 gm PO 4X/DAY #120 udc 04/09/17 Topiramate [Topiramate ER] 100 mg GT QHS #0 04/09/17 The following prescriptions were given: Oxycodone [Oxyir] 10 mg GT Q4H PRN PRN #120 tab PRN Reason: Breakthrough Pain (>4/10) Enoxaparin Sodium [Lovenox] 100 mg SQ DAILY #10 syringe Fentanyl [Duragesic] 50 mcg TRANSDERM. Q3D #10 patch Jevity 1.5 240 ml GT UD #44 bottle Famotidine [Pepcid] 20 mg GT BID #60 tab Metformin HCl 500 mg GT BID #60 tab Nystatin 500,000 unit PO 4X/DAY #280 udc Sucralfate [Carafate] 1 gm PO 4X/DAY #120 udc Primary Care Physician: Awais Holman DO [STAFF PHYSICIAN] - Please follow up with your Primary Care Physician in: this week Please Follow Up With: Manuel When: Tuesday or Tuesday Please Follow Up With: 2Checkout Please Follow Up With: Britton Amaya MD When: this week call the office Tuesday Proposed Discharge Date: 04/09/17
--- NOTE | 2017-04-09 13:32 | PCM.DC.SUM ---
Discharge Date and Diagnosis - Problem List Patient Problems: Active and Suspected Problems S/P percutaneous endoscopic gastrostomy (PEG) tube placement (Acute) Duodenitis (Acute) Gastritis (Acute) Hypomagnesemia (Acute) Date of Admission: 04/06/17 Date of Discharge: 04/09/17 - Primary Discharge Diagnosis Active and Suspected Problems S/P percutaneous endoscopic gastrostomy (PEG) tube placement (Acute) Duodenitis (Acute) Gastritis (Acute) Hypomagnesemia (Acute) Pancytopenia (Acute) due to chemotherapy Dehydration (Acute) Thrush (Acute) - Secondary Discharge Diagnosis Chronic Problems Esophageal cancer (Chronic) - stage [address] Holman and is getting chemotherapy Inanition (Chronic) Swallowing difficulty (Chronic) - due to radiation esophagitis and esophageal mass Chronic anticoagulation (Chronic) for recurrent DVT's on Xarelto History of recurrent deep vein thrombosis (DVT) (Chronic) BL LE's Former cigarette smoker (Chronic) quit in March of 2017 Diabetes mellitus type 2 in nonobese (Chronic) Chronic radicular low back pain (Chronic) Hospital Course and Treatment Imaging Results: Clinical Impression(s) from Imaging Studies Chest X-Ray 04/06/17 10:26 IMPRESSION: No acute abnormality is seen. Electronically Signed: Leopoldo Tang MD at 11:21 EST Tel [phone], Service support , Chest X-Ray 04/07/17 10:49 IMPRESSION: Mild increased markings at the left lung base suggestive of left basilar atelectasis. Electronically Signed: Leopoldo Tang MD at 15:48 EST Tel [phone], Service support , Consultations 04/08/17 11:47 Consult: Onc/Wound/online activist Routine Comment: Reason for Consult:: peg tube/dressings/care recommendations Dr. Britton [facility]aya-[facility] general surgery Operations: None Procedures: Peg tube placement Summary of Care Provided: The patient is a 66 year old M with a hx of esophageal CA diagnosed in December of 2016. He started both chemotherapy and radiation in March of 2017. Has been seeing Dr. Holman. He had been having difficulty swallowing and was also having N/V. He was unable to eat more than a few bites at a time. He also complained of a cough productive of clear sputum. His urine was very dark and strong smelling. He complained of being lightheaded. Denied syncope. He was sent to the ED by Dr. Holman for dehydration and Dr. Amaya was consulted by Dr. Holman for PEG tube placement. At the time of presentation he was in severe pain and had not been able to take any of his PO pain medication due to vomiting and difficulty swallowing. On PE the MM were very dry. The lungs were CTA. The abdomen was soft and BS's were present. He was started on a Dilaudid CHIEF TECHNOLOGIST which was effective in controlling his pain. He had the PEG placed on 04/07/2017. There was gastritis and duodenitis present at the time of EGD. There was a friable tumor in the distal esophagus with good room for passage of the scope. TF was initially continuous but he was transitioned to bolus feedings prior to DC and was tolerating them well. He was transitioned to a 50 mcg Fentanyl patch and OXY IR 10 mg Q 4 hours as needed for breakthrough pain prior to DC. Xarelto was held at DC because the platelet count was 53,[address] down. He was discharged on Lovenox 1 mg/kg daily per recommendation of Dr. Abad. He will follow up with Dr. Amaya and Dr. Holman. I instructed him to call Dr. Joseph, his pain management physician, [facility] to discuss changes in pain medications while hospitalized. This note was generated with KeepGo dictation software. It may contain incorrect words, spelling, and punctuation that were not noted in checking the note before signing. Discharge Activity: - - Activity as tolerated. AVOID anyone who is ill. May shower in (days): 1 Call your doctor if you observe: Fever of 101 or Higher, Shortness of breath, Dizziness, Fainting spells, Swelling in the ankles, Chest pain, Uncontrolled pain, - - vomiting Home Medications: Medications to take at Discharge Promethazine HCl 25 mg IJ Q6H PRN PRN 04/06/17 Citalopram Hydrobromide [Citalopram HBr] 20 mg GT DAILY #0 04/09/17 Enoxaparin Sodium [Lovenox] 100 mg SQ DAILY #10 syringe 04/09/17 Famotidine [Pepcid] 20 mg GT BID #60 tab 04/09/17 Fentanyl [Duragesic] 50 mcg TRANSDERM. Q3D #10 patch 04/09/17 Jevity 1.5 240 ml GT UD #44 bottle 04/09/17 Lisinopril [Zestril] 5 mg GT DAILY #0 tab 04/09/17 Lovastatin [Mevacor] 40 mg GT DAILY #0 04/09/17 Metformin HCl 500 mg GT BID #60 tab 04/09/17 Nystatin 500,000 unit PO 4X/DAY #280 udc 04/09/17 Oxycodone [Oxyir] 10 mg GT Q4H PRN PRN #120 tab 04/09/17 Sucralfate [Carafate] 1 gm PO 4X/DAY #120 udc 04/09/17 Topiramate [Topiramate ER] 100 mg GT QHS #0 04/09/17 Following Prescrptions Were Given to Patient: Oxycodone [Oxyir] 10 mg GT Q4H PRN PRN #120 tab PRN Reason: Breakthrough Pain (>4/10) Enoxaparin Sodium [Lovenox] 100 mg SQ DAILY #10 syringe Fentanyl [Duragesic] 50 mcg TRANSDERM. Q3D #10 patch Jevity 1.5 240 ml GT UD #44 bottle Famotidine [Pepcid] 20 mg GT BID #60 tab Metformin HCl 500 mg GT BID #60 tab Nystatin 500,000 unit PO 4X/DAY #280 udc Sucralfate [Carafate] 1 gm PO 4X/DAY #120 udc Primary Care Physician: Awais Holman DO [STAFF PHYSICIAN] - Please follow up with your Primary Care Physician in: this week Please Follow Up With: JUAN CARLOS-Janay When: Tuesday or Tuesday Please Follow Up With: MDconnectME When: Jose Luis Please Follow Up With: Britton Amaya MD When: this week call the office Tuesday Minutes spent on discharge:: 30 Meaningful Use Info Meaningful Use Diagnoses (Choose all that apply): None applicable Code Visit Inpatient E&M: 49410 [facility] Hosp
--- NOTE | 2017-04-09 13:37 | DS.PCM_ITS ---
Discharge Date and Diagnosis - Problem List Patient Problems: Active and Suspected Problems S/P percutaneous endoscopic gastrostomy (PEG) tube placement (Acute) Duodenitis (Acute) Gastritis (Acute) Hypomagnesemia (Acute) Date of Admission: 04/06/17 Date of Discharge: 04/09/17 - Primary Discharge Diagnosis Active and Suspected Problems S/P percutaneous endoscopic gastrostomy (PEG) tube placement (Acute) Duodenitis (Acute) Gastritis (Acute) Hypomagnesemia (Acute) Pancytopenia (Acute) due to chemotherapy Dehydration (Acute) Thrush (Acute) - Secondary Discharge Diagnosis Chronic Problems Esophageal cancer (Chronic) - stage [address] Holman and is getting chemotherapy Inanition (Chronic) Swallowing difficulty (Chronic) - due to radiation esophagitis and esophageal mass Chronic anticoagulation (Chronic) for recurrent DVT's on Xarelto History of recurrent deep vein thrombosis (DVT) (Chronic) BL LE's Former cigarette smoker (Chronic) quit in March of 2017 Diabetes mellitus type 2 in nonobese (Chronic) Chronic radicular low back pain (Chronic) Hospital Course and Treatment Imaging Results: Clinical Impression(s) from Imaging Studies Chest X-Ray 04/06/17 10:26 IMPRESSION: No acute abnormality is seen. Electronically Signed: Leopoldo Tang MD at 11:21 EST Tel [phone], Service support , Chest X-Ray 04/07/17 10:49 IMPRESSION: Mild increased markings at the left lung base suggestive of left basilar atelectasis. Electronically Signed: Leopoldo Tang MD at 15:48 EST Tel [phone], Service support , Consultations 04/08/17 11:47 Consult: Onc/Wound/family medicine chair Routine Comment: Reason for Consult:: peg tube/dressings/care recommendations Dr. Britton Amaya-[facility] general surgery Operations: None Procedures: Peg tube placement Summary of Care Provided: The patient is a 66 year old M with a hx of esophageal CA diagnosed in December of 2016. He started both chemotherapy and radiation in March of 2017. Has been seeing Dr. Holman. He had been having difficulty swallowing and was also having N/V. He was unable to eat more than a few bites at a time. He also complained of a cough productive of clear sputum. His urine was very dark and strong smelling. He complained of being lightheaded. Denied syncope. He was sent to the ED by Dr. Holman for dehydration and Dr. Amaya was consulted by Dr. Holman for PEG tube placement. At the time of presentation he was in severe pain and had not been able to take any of his PO pain medication due to vomiting and difficulty swallowing. On PE the MM were very dry. The lungs were CTA. The abdomen was soft and BS's were present. He was started on a Dilaudid RICE DRIER OPERATOR which was effective in controlling his pain. He had the PEG placed on 04/07/2017. There was gastritis and duodenitis present at the time of EGD. There was a friable tumor in the distal esophagus with good room for passage of the scope. TF was initially continuous but he was transitioned to bolus feedings prior to DC and was tolerating them well. He was transitioned to a 50 mcg Fentanyl patch and OXY IR 10 mg Q 4 hours as needed for breakthrough pain prior to DC. Xarelto was held at DC because the platelet count was 53,[address] down. He was discharged on Lovenox 1 mg/kg daily per recommendation of Dr. Abad. He will follow up with Dr. Amaya and Dr. Holman. I instructed him to call Dr. Joseph, his pain management physician , [facility] to discuss changes in pain medications while hospitalized. This note was generated with [employer] dictation software. It may contain incorrect words, spelling, and punctuation that were not noted in checking the note before signing. Discharge Activity: - - Activity as tolerated. AVOID anyone who is ill. May shower in (days): 1 Call your doctor if you observe: Fever of 101 or Higher, Shortness of breath, Dizziness, Fainting spells, Swelling in the ankles, Chest pain, Uncontrolled pain, - - vomiting Home Medications: Medications to take at Discharge Promethazine HCl 25 mg IJ Q6H PRN PRN 04/06/17 Citalopram Hydrobromide [Citalopram HBr] 20 mg GT DAILY #0 04/09/17 Enoxaparin Sodium [Lovenox] 100 mg SQ DAILY #10 syringe 04/09/17 Famotidine [Pepcid] 20 mg GT BID #60 tab 04/09/17 Fentanyl [Duragesic] 50 mcg TRANSDERM. Q3D #10 patch 04/09/17 Jevity 1.5 240 ml GT UD #44 bottle 04/09/17 Lisinopril [Zestril] 5 mg GT DAILY #0 tab 04/09/17 Lovastatin [Mevacor] 40 mg GT DAILY #0 04/09/17 Metformin HCl 500 mg GT BID #60 tab 04/09/17 Nystatin 500,000 unit PO 4X/DAY #280 udc 04/09/17 Oxycodone [Oxyir] 10 mg GT Q4H PRN PRN #120 tab 04/09/17 Sucralfate [Carafate] 1 gm PO 4X/DAY #120 udc 04/09/17 Topiramate [Topiramate ER] 100 mg GT QHS #0 04/09/17 Following Prescrptions Were Given to Patient: Oxycodone [Oxyir] 10 mg GT Q4H PRN PRN #120 tab PRN Reason: Breakthrough Pain (>4/10) Enoxaparin Sodium [Lovenox] 100 mg SQ DAILY #10 syringe Fentanyl [Duragesic] 50 mcg TRANSDERM. Q3D #10 patch Jevity 1.5 240 ml GT UD #44 bottle Famotidine [Pepcid] 20 mg GT BID #60 tab Metformin HCl 500 mg GT BID #60 tab Nystatin 500,000 unit PO 4X/DAY #280 udc Sucralfate [Carafate] 1 gm PO 4X/DAY #120 udc Primary Care Physician: Awais Holman DO [STAFF PHYSICIAN] - Please follow up with your Primary Care Physician in: this week Please Follow Up With: JUAN CARLOS-Janay When: Tuesday or Tuesday Please Follow Up With: [email or web address] When: Jose Luis Please Follow Up With: Britton Amaya MD When: this week call the office Tuesday Minutes spent on discharge:: 30 Meaningful Use Info Meaningful Use Diagnoses (Choose all that apply): None applicable Code Visit Inpatient E&M: 17705 [facility] Hosp
[2017-04-09 16:45] LABS: Bedside Glucose 179 mg/dL (70-110)
== END 2017-04-09 16:00 | disposition home health service (06) | DRG 374 ==
LOC: ED 10:39 → MS2 12:05
PROVIDERS: Anesthesiology; Surgery; Admitting Provider Internal Medicine; Emergency Provider Emergency Medicine; Visit Provider Internal Medicine
PROC: 0DH63UZ Insertion of Feeding Device into Stomach, Percutaneous Approach (ICD-10-PCS; principal; 2017-04-07 11:50)
DX: C15.5 Malignant neoplasm of lower third of esophagus (principal); D61.810 Antineoplastic chemotherapy induced pancytopenia; R64 Cachexia; B37.0 Candidal stomatitis; R13.10 Dysphagia, unspecified; E86.0 Dehydration; E11.9 Type 2 diabetes mellitus without complications; G89.29 Other chronic pain; M54.5 Low back pain; K20.8 Other esophagitis; Y84.2 Radiological procedure and radiotherapy as the cause of abnormal reaction of the patient, or of later complication, without mention of misadventure at the time of the procedure; T45.1X5A Adverse effect of antineoplastic and immunosuppressive drugs, initial encounter; K29.70 Gastritis, unspecified, without bleeding; K29.80 Duodenitis without bleeding; Z87.891 Personal history of nicotine dependence; Z68.28 Body mass index [BMI] 28.0-28.9, adult; Z79.84 Long term (current) use of oral hypoglycemic drugs; Z79.01 Long term (current) use of anticoagulants; Z86.718 Personal history of other venous thrombosis and embolism; E83.42 Hypomagnesemia; Z79.899 Other long term (current) drug therapy
CPT/HCPCS: 36415; 36591; 71045; 71046; 80048; 80053; 80076; 81001; 82962; 83036; 83735; 84100; 85025; 85027; 85610; 85730; 86850; 86900; 87040; 87070; 87086; 87205; 87641; 87804; 88305; 88342; 92507; 92526; 93005; 94762; 97110; 97162; 97165; 97802; 99281; J7030; J7120; A4216; J1170; J2405; J7799

== ENCOUNTER → 2017-10-25 07:50 | Outpatient (CLI) | payer MEDICARE, SELFPAY ==
[2017-10-25] VITALS (8 sets, daily range): BP systolic 98–137; BP diastolic 52–74; PULSE 69–85; RESP 16; TEMP 35.6–36.7; O2SAT 98–100
== END ==
PROVIDERS: Visit Provider Internal Medicine Hematology & Oncology
DX: Z51.89 Encounter for other specified aftercare (principal); D64.9 Anemia, unspecified
CPT/HCPCS: 36430; 86850; 86900; 86920; 86922; J7040; P9016; A4216

== ENCOUNTER → 2018-01-23 12:13 | Outpatient (CLI) | payer MEDICARE, SELFPAY ==
[2018-01-23 13:03] LABS: Absolute Neutrophil Count 1.2 X10^3/uL (2.0-7.7); Basophil# 0.02 X10^3/uL; Eosinophil# 0.08 X10^3/uL; Eosinophils% 3.9 % (0-5); Hematocrit 28.2 % (40-54); Lymphocyte % 24.3 % (19-41); Mean Corp Hgb Conc 31.9 g/gl (32-36); Mean Corpuscular Hgb 32.8 pg (27.0-32.0); Mean Corpuscular Volume 102.9 fL (80-94); Mean Platelet Vol. 10.5 fl (6.2-12.0); Monocyte# 0.24 X10^3/uL; Monocyte% 11.7 % (0-10); Neutrophil # 1.22 X10^3/uL (2.7-7.7); Neutrophil % 59.1 % (47-70); Platelet Count 137 K/mm3 (150-450); RBC Distribution Width CV 17.2 % (11.6-14.6); Red Blood Count 2.74 M/mm3 (4.6-6.2); White Blood Count 2.1 K/mm3 (4.4-11.0)
[2018-01-23 13:05] LABS: Differential Indicated SCAN CRITERIA MET; POSITIVE COUNT NO; POSITIVE DIFFERENTIAL YES; POSITIVE MORPHOLOGY NO
== END ==
PROVIDERS: Referring Provider Internal Medicine Hematology & Oncology; Visit Provider Internal Medicine Hematology & Oncology
DX: C15.9 Malignant neoplasm of esophagus, unspecified (principal)
CPT/HCPCS: 85025

== ENCOUNTER 2018-03-14 10:44 | Day surgery (SDC) | payer MEDICARE, OTHER, SELFPAY ==
--- NOTE | 2018-03-14 | FLU_PTH ---
PATIENT: RENEE JAEGER LOC: EN U#:[id number] AGE/SX: 67/M ROOM: RE03/14/[address]: Dr. Britton Amaya MD : 1950 BED: DIS: 03/14/2018 SPEC #: [id number] RECD: 03/14/18 14:56 STATUS: REBECCA RECynthia #: [id number] JEANMARIE: 03/14/18 00:[address]: Britton Amaya DEPT: CYTOLOGY RECD BY: Kane Khan ENTERED: 03/14/18 14:56 SP TYPE: Fluid OTHR DR: Out of Town Doctor Tissues: PARACENTESIS FLUID Procedures: Pap Stain (control) Special Stain Group II Cell Block Cytospin Fluid HEADER OPERATION: Ultrasound-guided right paracentesis PRE-OP DIAGNOSIS: Ascites TISSUE SUBMITTED: Paracentesis fluid for cytology DIAGNOSIS CYTOLOGY Paracentesis fluid for cytology (cytospin and cell block): Negative for malignant cells. SJ:jazmin 03/15/18 COMMENT Correlation with clinical findings and appropriate follow up are necessary. Please also correlate with concurrent surgical specimen ([id number]) mid esophagus, biopsy. Case has been reviewed in consultation with Dr. Lee who concurs with the above diagnosis. IDC:AM CYTOLOGY STUDY Slides are reviewed. The specimen consists of macrophages, mesothelial cells and inflammatory cells. CYTOLOGY GROSS Received is 90 ml of yellow cloudy fluid labeled with the patient's name and and designated per the requisition as paracentesis. Submitted for cytology preparation. / 03/14/18 TC:2 CPT: 96001
--- NOTE | 2018-03-14 11:08 | US_ITS ---
PROCEDURE: Ultrasound guided paracentesis. DATE OF EXAMINATION: March 14, 2018.. INDICATION: Male, 67 years old. Ascites. PHYSICIAN: Leopoldo Tang M.D. TECHNIQUE: The risks, benefits, and alternatives to the procedure were explained to the patient. The specific risks of bleeding, infection, and damage to bowel were detailed and accepted. Witnessed informed consent was obtained. The abdomen was ultrasonographically surveyed. An appropriate pocket of fluid was identified at the right lower quadrant. The skin were cleaned and prepped in the usual sterile fashion. Using ultrasound guidance, the peritoneal cavity was accessed with a 5-Thai paracentesis needle/catheter system. The trocar was removed. A total of 1720 ml of symone-colored fluid were removed from the peritoneal cavity. A 120 ml sample was sent to the laboratory. The catheter was removed and a sterile dressing was applied. The procedure was well tolerated. US/Paracentesis with US IMPRESSION: Ultrasound guided paracentesis. Electronically Signed: Leopoldo Tang MD at 14:06 EST Tel [phone], Service support ,
[2018-03-14 11:11] LABS: Absolute Lymphocyte Count 1.02 X10^3/ul (0.83-4.51); Absolute Neutrophil Count 5.3 X10^3/uL (2.0-7.7); Basophil# 0.02 X10^3/uL; Basophil% 0.3 % (0-1); Eosinophil# 0.05 X10^3/uL; Eosinophils% 0.8 % (0-5); Hematocrit 31.7 % (40-54); Lymphocyte # 1.02 X10^3/ul (4.0); Lymphocyte % 15.7 % (19-41); Mean Corp Hgb Conc 31.5 g/gl (32-36); Mean Corpuscular Volume 95.2 fL (80-94); Mean Platelet Vol. 8.9 fl (6.2-12.0); Monocyte% 1.5 % (0-10); Neutrophil # 5.29 X10^3/uL (2.7-7.7); Neutrophil % 81.5 % (47-70); Platelet Count 248 K/mm3 (150-450); RBC Distribution Width CV 16.6 % (11.6-14.6); RBC Distribution Width SD 57.8 fl (35.1-43.9); Red Blood Count 3.33 M/mm3 (4.6-6.2); White Blood Count 6.5 K/mm3 (4.4-11.0)
[2018-03-14 11:16] LABS: POSITIVE COUNT NO; POSITIVE DIFFERENTIAL NO; POSITIVE MORPHOLOGY NO
[2018-03-14 11:18] LABS: International Normalized Ratio 1.1; Partial Thromboplast Time 35.4 Seconds (24.1-36.2); Prothrombin Time (Protime)PT. 14.1 SECONDS (11.7-14.9)
[2018-03-14 11:34] VITALS: BP 121/76; PULSE 96; RESP 16; TEMP 36.7; O2SAT 94
--- NOTE | 2018-03-14 12:00 | ESO_PTH ---
PATIENT: RENEE JAEGER LOC: EN U#:[id number] AGE/SX: 67/M ROOM: RE03/14/[address]: Dr. Britton Amaya MD : 1950 BED: DIS: 03/14/2018 SPEC #: [id number] RECD: 03/14/18 13:06 STATUS: REBECCA ZAINAB #: [id number] JEANMARIE: 03/14/18 12:[address]: Britton Amaya DEPT: SURGICAL PATHOLOGY RECD BY: Britton Maynard ENTERED: 03/14/18 13:21 SP TYPE: GERMAN TROTTER DR: Out of Town Doctor Tissues: Esophagus, NOS Procedures: Special Stain Group I Surgery Specimen Level IV GMS Stain (control) HEADER OPERATION: EGD ([facility]) PRE-OP DIAGNOSIS: Esophageal CA with worsening dysphagia TISSUE SUBMITTED: Mid esophagus biopsy MICROSCOPIC DIAGNOSIS Mid esophagus, biopsy: Fragments of squamous epithelium with focal ulceration and associated acute inflammation. Negative for malignancy. Special stain for fungi is negative for organisms; matched control is appropriate. SJ:jazmin 03/15/18 COMMENT Correlation with clinical, endoscopic findings and appropriate follow up are necessary. Please also correlate with concurrent cytology specimen ([id number]) paracentesis fluid for cytology. Case has been reviewed in consultation with Dr. Lee who concurs with the above diagnosis. IDC:AM MICROSCOPIC DESCRIPTION Slides are reviewed. GROSS DESCRIPTION Received in fixative is one container labeled with the patient's name and designated mid esophagus biopsy. The specimen consists of multiple irregular fragments of light moreno soft tissue that in aggregate measure 0.5 x 0.3 x 0.1 cm. The specimen is totally submitted in one cassette. / AM:jazmin 03/14/18 TC:2 CPT: 35470, 46303
[2018-03-14 12:24] VITALS: BP 121/76; BP 95/63; PULSE 88; RESP 15; TEMP 36.2; O2SAT 94
[2018-03-14 12:25] LABS: Bedside Glucose 113 mg/dL (70-110)
[2018-03-14 12:29] VITALS: BP 121/76; BP 86/65; PULSE 86; RESP 16; O2SAT 94
--- NOTE | 2018-03-14 12:29 | OP.ENDO_ITS ---
Patient Name: Antonio Gillespie Procedure Date: 03/14/2018 11:55 AM Date of : 1950 Age: 67 Procedure: Upper GI endoscopy Indications: Surveillance for malignancy due to personal history of esophageal cancer Providers: Britton Amaya MD Referring MD: Britton Amaya MD Medicines: Monitored Anesthesia Care Patient Profile: This is a 67 year old male. Refer to note in patient chart for documentation of history and physical. Complications: No immediate complications. Procedure: Pre-Anesthesia Assessment: - Prior to the procedure, a History and Physical was performed, and patient medications and allergies were reviewed. The patient is competent. The risks and benefits of the procedure and the sedation options and risks were discussed with the patient. All questions were answered and informed consent was obtained. Patient identification and proposed procedure were verified by the physician, the nurse and the proposal engineer in the procedure room. Mental Status Examination: alert and oriented. Airway Examination: normal oropharyngeal airway and neck mobility. Respiratory Examination: clear to auscultation. CV Examination: normal. Prophylactic Antibiotics: The patient does not require prophylactic antibiotics. Prior Anticoagulants: The patient has taken no previous anticoagulant or antiplatelet agents. ASA Grade Assessment: III - A patient with severe systemic disease. After reviewing the risks and benefits, the patient was deemed in satisfactory condition to undergo the procedure. The anesthesia plan was to use monitored anesthesia care (MAC). Immediately prior to administration of medications, the patient was re-assessed for adequacy to receive sedatives. The heart rate, respiratory rate, oxygen saturations, blood pressure, adequacy of pulmonary ventilation, and response to care were monitored throughout the procedure. The physical status of the patient was re-assessed after the procedure. After obtaining informed consent, the endoscope was passed under direct vision. Throughout the procedure, the patient's blood pressure, pulse, and oxygen saturations were monitored continuously. The gastroscope was introduced through the mouth, and advanced to the third part of duodenum. The upper GI endoscopy was accomplished without difficulty. The patient tolerated the procedure well. Scope In: 12:14:48 PM Scope Out: 12:19:20 PM Total Procedure Duration Time 0 hours 4 minutes 32 seconds Findings: The examined duodenum was normal. The entire examined stomach was normal. A large, fungating mass with bleeding and stigmata of recent bleeding was found in the lower third of the esophagus. The mass was partially obstructing and circumferential. Medium plaques were found in the middle third of the esophagus. Biopsies were taken with a cold forceps for histology. Impression: - Normal examined duodenum. - Normal stomach. - Partially obstructing, malignant esophageal tumor was found in the lower third of the esophagus. - Plaques in the middle third of the esophagus. Biopsied. Recommendation: - Return to my office in 3 days. - Continue present medications. Procedure Code(s): --- Professional --- 52046, Esophagogastroduodenoscopy, flexible, transoral; with biopsy, single or multiple CPT copyright 2017 [employer]. All rights reserved. The codes documented in this report are preliminary and upon assessment rn review may be revised to meet current compliance requirements. Britton Amaya MD 03/14/2018 12:28:47 PM This report has been signed electronically. Number of Addenda: 0 Note Initiated On: 03/14/2018 11:55 AM
[2018-03-14 12:34] VITALS: BP 121/76; BP 99/67; PULSE 85; RESP 16; O2SAT 94
[2018-03-14 12:40] VITALS: BP 104/65; BP 121/76; PULSE 86; RESP 16; TEMP 37; O2SAT 97
[2018-03-14 13:49] LABS: Cytology, Body Fluid / CSF SEE PATHOLOGY REPORT
[2018-03-14 14:03] LABS: Specific Gravity, Body Fluid 1.024
[2018-03-14 14:10] LABS: Body Fluid Mononuclear WBC # 0.262 10^3/uL; Body Fluid Mononuclear WBC % 91.3 %; Body Fluid Polynuclear WBC # 0.025 10^3/uL; Body Fluid Polynuclear WBC % 8.7 %; White Blood Count/Body Fluid 0.287 10^3/uL
[2018-03-14 14:11] VITALS: BP 121/76
[2018-03-14 14:29] LABS: Auto B Fluid Analyzer BKGD Ct COUNTS W/IN LIMITS (W/IN LIMITS); Source- Body Fluid OTHER
[2018-03-14 14:30] LABS: Appearance/Body Fluid SL CLDY; Color/Body Fluid YELLOW
[2018-03-14 15:04] LABS: Body Fluid QC Type(s) BF1Q; Lymphocytes 38 %; Mesothelial Cells 14 %; Monocytes 36 %; Neutrophil (Segs) 12 %
[2018-03-14 15:11] LABS: Glucose, Body Fluid 64 mg/dL (40-70); LDH,Body Fluid 1130 Units/l (Not Establ.); Protein, Body Fluid 3.8 g/dL (Not Establ.)
[2018-03-15 14:26] LABS: Pathologist Comment/Body Fluid Reviewed
[2018-03-20 09:41] LABS: Amylase Body Fluid 9 U/L (.); pH, Body Fluid 11254 7.6 (Not Estab.)
== END 2018-03-14 14:14 | disposition home or self-care (01) ==
LOC: EN 10:49 → AC 10:56
PROVIDERS: Referring Provider Surgery; Visit Provider Surgery
PROC: 0DJ08ZZ Inspection of Upper Intestinal Tract, Via Natural or Artificial Opening Endoscopic (ICD-10-PCS; CPT 43235; principal; 2018-03-14 11:55)
DX: C15.5 Malignant neoplasm of lower third of esophagus (principal); C77.2 Secondary and unspecified malignant neoplasm of intra-abdominal lymph nodes; K22.8 Other specified diseases of esophagus; R18.0 Malignant ascites; D68.9 Coagulation defect, unspecified; E78.00 Pure hypercholesterolemia, unspecified; E11.42 Type 2 diabetes mellitus with diabetic polyneuropathy; E72.12 Methylenetetrahydrofolate reductase deficiency; Z79.891 Long term (current) use of opiate analgesic; Z79.899 Other long term (current) drug therapy; Z87.891 Personal history of nicotine dependence
CPT/HCPCS: 43239; 36415; 49083; 81002; 82150; 82945; 82962; 83615; 83986; 84157; 85025; 85610; 85730; 87070; 87075; 87205; 88108; 88305; 88312; 88313; 89050; J7120; A4216

== ENCOUNTER → 2018-03-16 09:28 | Outpatient (CLI) | payer MEDICARE, OTHER, SELFPAY ==
--- NOTE | 2018-03-16 09:32 | CT_ITS ---
STUDY: CT ABDOMEN AND PELVIS WITH CONTRAST REASON FOR EXAM: Male, 67 years old. Assess for portal vein thrombosis. Ascites. History of esophageal cancer. RADIATION DOSAGE (If Supplied By Facility): CTDIvol = ( 18.64 ) mGy, DLP = ( 1661.63 ) mGycm TECHNIQUE: Transaxial images were obtained from the dome of the diaphragm to the symphysis pubis with oral contrast. 100ML ml of Isovue 300 contrast was administered. Sagittal and coronal images were reconstructed. Individualized dose optimization techniques were used for this CT. COMPARISON: Paracentesis 03/14/2018. Chest x-ray 04/07/2017. FINDINGS: Body wall soft tissues: Flank edema, more prominent on the right. Suggesting 3rd spacing of fluid/anasarca. Right internal hernia, hernia defect measuring 2 cm, ascites fluid extending into the right hemiscrotum at least 10 cm, with a diameter of 7.7 cm. This suggests the presence of patent vaginalis. There is no apparent hydrocele around the testes. Mildly prominent right hemiscrotal venous plexus. Represent small varicocele. This could also just represent venous congestion fluid in the canal. Osseous structures: No acute process. Inferior chest: Small right, minimal left effusion, mild bibasilar atelectasis. Right lower lobe lateral basilar segment pulmonary nodule measuring approximately 7.7 x 6 mm. Image 14, axial. Left lower lobe medial basal segment sulcus subpleural pulmonary nodule measuring 6 x 5 mm. Image 17. Patulous and mildly thick-walled distal esophagus without masslike features. No adjacent lymphadenopathy. No cardiomegaly. Three-vessel coronary atherosclerosis. Aortic valve leaflet and annulus calcifications. Hepatobiliary: Nodular cirrhotic features of the liver. There are multiple very small low density foci within the liver, circumscribed margins, cystlike features, the largest in the left liver measuring 7.4 mm. The largest in the right liver measures approximately 7.6 mm. Too small for definitive imaging characterization. Normal gallbladder. Nondilated biliary tree. Pancreas: Severe pancreatic atrophy with punctate calcifications consistent with prior pancreatitis. Apparent prominent low density focus at the ampulla, bulging into the 2nd portion of the duodenum, measuring approximately 16 mm in diameter. This is best appreciated on axial image 59, coronal image 76 and sagittal image 76. By contrast at its margins. Central density averaging approximately 28 Hounsfield units. This could potentially be an epidural mass, or duodenal lipoma. Spleen: Normal. Adrenal glands: Normal. Urogenital: Normal kidneys, collecting systems, ureters, urinary bladder, prostate and seminal vesicles. Pelvic floor and sidewalls and retroperitoneum: A few tiny iliac chain lymph nodes. Several pelvic lymph nodes of the retroperitoneum are not pathologically enlarged. Vasculature: Mild atherosclerosis. Portal vein, splenic vein and mesenteric veins are widely patent. Stomach: There is an apparent serosal surface thickening of the gastric fundus. Small bowel and mesentery: Small bowel loops are nondilated. There is hazy induration in the small bowel mesentery with a small amount of ascites, without mesenteric lymphadenopathy. Large bowel: The appendix is not clearly visualized. Unremarkable large bowel and rectum. Free air: None. Free fluid: Severe ascites, complex, and somewhat tense features, suggesting the possibility of pseudomyxoma peritonei. Extensive omental caking. Mild thickening and nodularity of the peritoneal reflection of the pelvis bilaterally. Consistent with metastatic disease. Free fluid or free air: 1. Intense complex ascites with extensive omental caking, and pelvic peritoneal reflection nodularity and enhancement, consistent with metastatic disease. 2. Multiple tiny low-density foci are present within the liver. The liver is cirrhotic. These foci are too small for definitive characterization. Differential considerations include cysts, metastatic foci, hepatocellular carcinoma. The absence of enhancement of these foci is encouraging but nonspecific. 3. 16 mm nodular focus within the 2nd portion of the duodenum adjacent to the ampulla. Heterogeneous low density features. This could represent an ampullary mass, or duodenal lipoma. 4. There is no evidence of portal vein thrombosis. There is no splenomegaly and there are no varices to suggest the presence of portal venous hypertension. 5. Minimal bilateral pleural effusions. CT/Abdomen/Pelvis WITH Contrast IMPRESSION: Normal enhanced CT of the abdomen and pelvis. Electronically Signed: Britton Saeed MD at 12:24 EST Tel , Service support ,
[2018-03-16 11:41] LABS: CREATININE FINGERSTICK 0.7 mg/dL (0.70-1.30)
== END ==
PROVIDERS: Referring Provider Surgery; Visit Provider Surgery
DX: I81 Portal vein thrombosis (principal); C77.2 Secondary and unspecified malignant neoplasm of intra-abdominal lymph nodes; R18.0 Malignant ascites
CPT/HCPCS: 74177; Q9967; A4216

== ENCOUNTER 2018-03-17 12:26 | Observation (INO) | payer MEDICARE, OTHER, SELFPAY ==
[2018-03-17] VITALS (14 sets, daily range): BP systolic 90–113; BP diastolic 48–70; PULSE 77–91; RESP 14–18; TEMP 36.4–37.2; O2SAT 94–99; BMI 29.6
--- NOTE | 2018-03-17 | IMM_PTH ---
PATIENT: RENEE JAEGER LOC: MS3 U#:[id number] AGE/SX: 67/M ROOM: MS306 RE03/17/[address]: Dr. Britton Amaya MD : 1950 BED: 1 DIS: 03/18/2018 SPEC #: [id number] RECD: 03/20/18 10:53 STATUS: SOUT REQ #: [id number] JEANMARIE: 03/17/18 00:[address]: Britton Amaya DEPT: IMMUNOHISTOCHEMISTRY RECD BY: Sravani Garcia ENTERED: 03/20/18 10:55 SP TYPE: IMMUNO OTHR DR: Out of [facility] Doctor Tissues: Peritoneal fluid Procedures: RCC (add) NAPSIN A (add) Phil Ret (add) CK20 (add) CK5-6 (add) CK7 (add) CK8 (add) HEP PAR (add) TTF1 (add) Pankeratin (add) P40 (add) PSAP (add) Vimentin (initial) PHYSICIAN & [address] [address] SPECIMEN INFORMATION: Tissue Source: Peritoneal fluid Clinical Info: Ascites Specimen Number: [id number] CPT code: 29911, 94212 x12 METHODOLOGY: Deparaffinized sections of prefer/formalin-fixed tissue or PAP/DQ stained slides are incubated with monoclonal/polyclonal antibodies/oligonucleotide probes. Localization is made via biotin free immunoperoxidase method. Appropriate controls are performed and reacted as expected. Results on target cell population are indicated in the following table: RESULTS: ANTIBODY / CLONE RESULT Vimentin (V9) negative AE1-3 (AE1/AE3/PCK26) positive CK7 (OV-TL12/30) positive CK8 (47gzptB83) positive CK20 (KS20.8) negative TTF-1 (8G7G3/1) negative Napsin A (Rabbit Polyclonal) negative HepPar (OCh1E5) negative RCC (PN-15) negative PSAP (PASE/4LJ) negative CK5-6 (D5 & 1684) negative CALRET (polyclonal) negative P40 (BC28) negative These tests were developed and their performance characteristics determined by [facility]. They may not have been cleared or approved by the U.S. Food and Drug Administration. The FDA has determined that such clearance or approval is not necessary. 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 SJ:jazmin 03/21/18 Comment: IHC profile favors upper gastrointestinal tract. Clinical correlation is necessary. Case has been reviewed in consultation with Dr. Lee who concurs with the above diagnosis. IDC:ELISE
--- NOTE | 2018-03-17 | FLU_PTH ---
PATIENT: RENEE JAEGER LOC: MS3 U#:[id number] AGE/SX: 67/M ROOM: IN306 RE03/17/[address]: Dr. Britton Amaya MD : 1950 BED: 1 DIS: 03/18/2018 SPEC #: [id number] RECD: 03/17/18 13:23 STATUS: REBECCA REQ #: [id number] JEANMARIE: 03/17/18 00:[address]: Britton Amaya DEPT: CYTOLOGY RECD BY: Kane Khan ENTERED: 03/17/18 13:23 SP TYPE: Fluid OTHR DR: Out of Town Doctor Tissues: Peritoneal fluid Procedures: Pap Stain (control) Special Stain Group II Mucicarmine Stain (control) Surgery Specimen Level IV Cell Block Cytospin Fluid HEADER OPERATION: Not noted PRE-OP DIAGNOSIS: Ascites TISSUE SUBMITTED: Peritoneal fluid for cytology DIAGNOSIS CYTOLOGY Peritoneal fluid for cytology (cytospin and cell block): 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 See comment. SJ:rg 03/21/18 COMMENT Extravasated mucin is also noted. Mucin stain with matched control is used in the evaluation of the specimen and tumor cells are focally positive for mucin. Extravasated mucin is diffusely positive for mucin. Immunohistochemistry ([id number]) supports the above diagnosis. IHC profile favors upper gastrointestinal tract. Correlation with clinical findings and appropriate follow up are necessary. Case has been reviewed in consultation with Dr. Lee who concurs with the above diagnosis. IDC:AM CYTOLOGY STUDY Slides are reviewed. CYTOLOGY GROSS Received is 900 ml of reddish, cloudy fluid labeled with the patient's name and and designated per the requisition as peritoneal fluid. Submitted for cytology preparation including cell block. / 03/17/18 TC:0 CPT: 09953, 39833, 05250
[2018-03-17 09:45] LABS: Bedside Glucose 116 mg/dL (70-110)
[2018-03-17] MEDS: Cefazolin 2 GM in 0.9% Normal Saline 100 ML IV (11:36)
[2018-03-17] MEDS: Bupivacaine Mpf 0.5% 30 ML VIAL (12:20)
--- NOTE | 2018-03-17 12:26 | OP.PCM_ITS ---
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 Sign was performed verifying patient, site, position, skip antibiotic prophylaxis-2 g of Ancef and DVT prophylaxis with SCDs. Ultrasound was used to evaluate the lower abdomen and a window marked providing good entry into the peritoneal cavity along with marking the inferior epigastric to avoid the risks for bleeding was marked on the skin in the Following IV sedation, abdomen were prepped and draped in the usual fashion. Timeout was performed verifying patient, site, position. Local anesthetic was injected and a Seldinger needle was used to access the peritoneal cavity without difficulty. A guidewire was inserted and advanced into the peritoneal space. Local anesthetic was injected and incision made for the catheter exit site. Next the catheter was tunneled from the skin exit site to the wire. Dilators were placed over the wire until the largest dilator with introducer sheath were placed. The wire and dilator removed. The catheter was fed through the introducer suture sheath and adjusted to the edge of the abdominal cavity with the fenestrations . There was good return of ascites fluid. The Pleurx catheter was affixed to an adapter and ascetic fluid was drained. A total of approximately cc of fluid was drained. The catheter was secured with a 3-0 silk suture at the skin exit site. The abdominal insertion site skin was closed with 4-0 Biosyn interrupted subcuticular sutures. Dermabond was applied to the abdominal insertion site. A dressing was applied. The catheter was then capped and dressed with the occlusive dressing The patient was brought to recovery room in stable condition. - Admit VTE Documentation VTE Present on Admission: No VTE Mechan Device Prophylaxis: SCD's VTE Pharm Prophylaxis ordered?: Yes
[2018-03-17 13:03] LABS: Cytology, Body Fluid / CSF SEE PATHOLOGY REPORT
[2018-03-17] MEDS: Albumin Human 25% (100 mL) 25 GM/100 ML BAG IV (15:14)
[2018-03-17] MEDS: Gabapentin 600 MG Tablet PO (16:32)
[2018-03-17] MEDS: 0.9% NaCl Peripheral Flush Adult/Peds IV (17:07)
[2018-03-17] MEDS: Lactated Ringers 1,000 ML 42 ML IV (17:10)
[2018-03-17] MEDS: oxyCODONE 5 MG Tablet PO (19:58)
[2018-03-17] MEDS: Morphine 4 MG/ML Syringe IV (23:22)
[2018-03-18 02:10] VITALS: BP 119/63; PULSE 88; RESP 16; TEMP 37.2; O2SAT 94
[2018-03-18] MEDS: Morphine 4 MG/ML Syringe IV (02:13)
[2018-03-18] MEDS: oxyCODONE 5 MG Tablet PO (05:46)
[2018-03-18 08:10] VITALS: BP 95/53; PULSE 82; RESP 18; TEMP 37; O2SAT 96
--- NOTE | 2018-03-18 08:26 | DCINST_ITS ---
You will use the following diet at home:: Regular May shower in (days): 0 Additional Dressing/Incision Instructions:: leave dressing in place Allergies/Adverse Reactions: Allergies linagliptin [From Tradjenta] Allergy (Verified 03/16/18 16:05) Rash Medications to take at Discharge Enoxaparin Sodium [Lovenox] 100 mg SQ DAILY 03/10/18 Gabapentin 600 mg PO TID 03/10/18 Magnesium Hydroxide [Milk Of Magnesia] 30 ml PO DAILY PRN PRN 03/10/18 Omeprazole 40 mg PO DAILY 03/10/18 proMETHazine tablet [Phenergan tablet] 25 mg PO Q6H PRN PRN 03/16/18 Oxycodone HCl/Acetaminophen [Percocet 10-325 mg Tablet] 1 - 2 tab PO Q6H PRN PRN 10 Days #30 tab 03/18/18 The following prescriptions were given: Oxycodone HCl/Acetaminophen [Percocet 10-325 mg Tablet] 1 - 2 tab PO Q6H PRN PRN 10 Days #30 tab PRN Reason: Pain Primary Care Physician: [facility] Doctor,Out of [Primary Care Provider] - Test Results: Test results from this visit will be discussed in further detail at your follow-up appointment, if applicable. Please Follow Up With: Britton Amaya MD When: Tuesday or Tuesday
[2018-03-18] MEDS: Gabapentin 600 MG Tablet PO (09:33)
[2018-03-18] MEDS: Pantoprazole Sodium 40 MG Tablet PO (09:33)
[2018-03-18] MEDS: Enoxaparin 40 MG/0.4 ML Syringe SC (09:33)
[2018-03-18] MEDS: 0.9% NaCl VAD Flush 10 ML IV (10:27)
--- NOTE | 2018-03-18 11:54 | PCM.DC.SUM ---
Discharge Date and Diagnosis Date of Admission: 03/17/18 Date of Discharge: 03/18/18 - Primary Discharge Diagnosis esophageal cancer intractable ascites - Secondary Discharge Diagnosis Chronic Problems Esophageal cancer (Chronic) follows with Dr. Holman and is getting chemotherapy Inanition (Chronic) Swallowing difficulty (Chronic) Chronic anticoagulation (Chronic) on Xarelto History of recurrent deep vein thrombosis (DVT) (Chronic) GUILLAUME MURPHY's Former cigarette smoker (Chronic) quit in March of 2017 Diabetes mellitus type 2 in nonobese (Chronic) Chronic radicular low back pain (Chronic) Hospital Course and Treatment Operations: None, - - placement of tunneled peritoneal catheter for ascites drainage Summary of Care Provided: The patient is a 67 year old M undergoing palliative chemotherapy for unresectable esophageal cancer. the patient developed intractable ascites. He was taken to the operating suite for placement of a peritoneal tunneled drainage catheter. he had 8 L of ascites removed. He was monitored overnight to assure that adequate blood pressure and output. He was doing well and was tolerating a regular diet and able to be discharged home with instructions to follow-up in the office for drainage of ascites Tuesday or Tuesday - Physical Exam General: Alert, Oriented x3, Cooperative Lungs: Clear to auscultation, Normal air movement Cardiovascular: Regular rate, Regular Rhythm Abdomen: Bowel Sounds Present, Soft, Non Tender - some degree of reaccumulation of the ascites Vital Signs Temp Pulse Resp BP Pulse Ox 98.6 F 82 18 95/53 L 96 03/18/18 08:10 03/18/18 08:10 03/18/18 08:10 03/18/18 08:10 03/18/18 08:10 Oxygen Delivery Method Room Air Weight: 99.2 kg Body Mass Index (BMI) 29.6 Intake and Output for Last 24 Hours 03/16/18 03/17/18 03/18/18 23:59 23:59 23:59 Intake Total 1700 / 1700 1474 / 1474 Output Total 1375 / 1375 Balance 1700 / 1700 99 / 99 Laboratory Tests Past 24 Hrs 03/17/18 12:18 Miscellaneous Cytology Pending Discharge Diet: No Restrictions May shower in (days): 0 Additional Dressing/Incision Instructions:: leave dressing in place Home Medications: Medications to take at Discharge Enoxaparin Sodium [Lovenox] 100 mg SQ DAILY 03/10/18 Gabapentin 600 mg PO TID 03/10/18 Magnesium Hydroxide [Milk Of Magnesia] 30 ml PO DAILY PRN PRN 03/10/18 Omeprazole 40 mg PO DAILY 03/10/18 proMETHazine tablet [Phenergan tablet] 25 mg PO Q6H PRN PRN 03/16/18 Oxycodone HCl/Acetaminophen [Percocet 10-325 mg Tablet] 1 - 2 tab PO Q6H PRN PRN 10 Days #30 tab 03/18/18 Following Prescrptions Were Given to Patient: Oxycodone HCl/Acetaminophen [Percocet 10-325 mg Tablet] 1 - 2 tab PO Q6H PRN PRN 10 Days #30 tab PRN Reason: Pain Primary Care Physician: Brian Bonilla,Out of [Primary Care Provider] - Please Follow Up With: Britton Amaya MD When: Tuesday or Tuesday Medical Necessity - Tobacco Use Smoking Status: Current every day smoker Meaningful Use Info Meaningful Use Diagnoses (Choose all that apply): None applicable
== END 2018-03-18 10:34 | disposition home or self-care (01) ==
LOC: MS3 19:30 → SDC 03-20 07:18
PROVIDERS: Admitting Provider Surgery; Referring Provider Surgery; Visit Provider Surgery
PROC: (CPT 32550; principal; 2018-03-17 10:45)
DX: Z45.2 Encounter for adjustment and management of vascular access device (principal); C15.9 Malignant neoplasm of esophagus, unspecified; C77.2 Secondary and unspecified malignant neoplasm of intra-abdominal lymph nodes; R18.0 Malignant ascites; K21.9 Gastro-esophageal reflux disease without esophagitis; E78.00 Pure hypercholesterolemia, unspecified; E11.40 Type 2 diabetes mellitus with diabetic neuropathy, unspecified; R13.19 Other dysphagia; E72.12 Methylenetetrahydrofolate reductase deficiency; Z92.21 Personal history of antineoplastic chemotherapy; Z92.3 Personal history of irradiation; Z86.718 Personal history of other venous thrombosis and embolism; Z79.01 Long term (current) use of anticoagulants; Z87.891 Personal history of nicotine dependence; Z79.899 Other long term (current) drug therapy
CPT/HCPCS: 49418; 82962; 88108; 88305; 88313; 88341; 88342; 96365; 96366; 96372; 96375; 96376; 99218; J7120; P9047; A4216; C1729; G0378; G0379; J2405

== ENCOUNTER 2018-04-16 13:22 | Emergency (ER) | payer MEDICARE, OTHER, SELFPAY ==
[2018-03-17 09:34] VITALS: BMI 29.6
[2018-04-16 13:23] VITALS: BP 130/72; PULSE 94; RESP 15; TEMP 36.3; O2SAT 100; BMI 27.1
--- NOTE | 2018-04-16 13:53 | EKG12_ITS ---
Test Reason : SOB Blood Pressure : / mmHG Vent. Rate : 091 BPM Atrial Rate : 091 BPM P-R Int : 152 ms QRS Dur : 086 ms QT Int : 390 ms P-R-T Axes : 076 -47 035 degrees QTc Int : 479 ms Normal sinus rhythm Low voltage QRS Left anterior fascicular block Cannot rule out Anterior infarct , age undetermined Abnormal ECG Confirmed by KENAN RAMOS, ROME ([id number]), city editor LYNNE CARLOS ([id number]) on 04/21/2018 9:01:30 AM Referred By: JIMMY Confirmed By:ROME GRAYSON MD
--- NOTE | 2018-04-16 13:53 | RAD_ITS ---
STUDY: X-RAY CHEST REASON FOR EXAM: Male, 67 years old. Wheezing TECHNIQUE: PA and lateral views of the chest. COMPARISON: 04/07/2017 FINDINGS: Left subclavian chest port is stable since the prior study. Lungs are mildly hypoinflated with left lower lobe reticular opacity, new. There is no demonstrated pleural abnormality. Normal size heart. Normal mediastinum and naveed. Normal visualized pulmonary arteries. Normal visualized aortic arch and descending thoracic aorta. There are diffuse degenerative changes of the visualized thoracic spine. New but subacute fractures of the posterior right sixth, seventh and eighth ribs noted with mild degree of callus. There is no demonstrated abnormality of the visualized soft tissue structures of the upper abdomen. RAD/Chest PA and Lateral IMPRESSION: 1. Developing left lower lobe atelectasis or pneumonia. 2. New but subacute right posterior rib fractures. Electronically Signed: Elias Duque MD at 15:19 EST , Service support ,
[2018-04-16 14:29] VITALS: PULSE 99; RESP 16
[2018-04-16] MEDS: Albuterol 2.5 MG/3 ML VIAL.NEB. INHALATION (14:29)
[2018-04-16] MEDS: Ipratropium/Albuterol Sulfate 3 ML AMPUL.NEB INHALATION (14:29)
[2018-04-16 14:30] VITALS: BP 131/75; PULSE 91; RESP 17; O2SAT 99
[2018-04-16 14:35] LABS: Absolute Lymphocyte Count 0.25 X10^3/ul (0.83-4.51); Absolute Neutrophil Count 1.7 X10^3/uL (2.0-7.7); Basophil# 0.02 X10^3/uL; Basophil% 0.9 % (0-1); Eosinophil# 0.02 X10^3/uL; Eosinophils% 0.9 % (0-5); Hematocrit 33.6 % (40-54); Hemoglobin 10.8 g/dl (13.0-16.5); Lymphocyte # 0.25 X10^3/ul (4.0); Lymphocyte % 11.5 % (19-41); Mean Corp Hgb Conc 32.1 g/gl (32-36); Mean Corpuscular Volume 93.3 fL (80-94); Mean Platelet Vol. 9.9 fl (6.2-12.0); Monocyte# 0.17 X10^3/uL; Monocyte% 7.8 % (0-10); Neutrophil # 1.71 X10^3/uL (2.7-7.7); Neutrophil % 78.4 % (47-70); Platelet Count 188 K/mm3 (150-450); RBC Distribution Width CV 18.9 % (11.6-14.6); White Blood Count 2.2 K/mm3 (4.4-11.0)
[2018-04-16 14:38] LABS: Differential Indicated SCAN CRITERIA MET; POSITIVE COUNT NO; POSITIVE DIFFERENTIAL YES; POSITIVE MORPHOLOGY NO
[2018-04-16 14:49] LABS: ALB/GLOB Ratio 0.4 RATIO (0.9-2.4); AST(SGOT) 22 U/L (15-37); Alanine Aminotransfer ALT/SGPT 16 U/L (16-61); Albumin, Serum 1.8 g/dL (3.2-5.0); Alkaline Phosphatase 154 U/L (45-117); Anion Gap 9 (5-15); BUN 13 mg/dL (7-18); BUN/Creat Ratio 23.2 RATIO (10-20); Calcium,Total 7.7 mg/dL (8.5-10.1); Chloride 103 mmol/L (98-107); Creatinine, Serum 0.56 mg/dL (0.70-1.30); EST Glomerular Filtration Rate 155 mL/min (>60); Est Glom Filt Rate - Afr Amer 188 mL/min (>60); Estimated Creatinine Clearance 144.35 ml/min; Globulin 4.4 g/dL (2.2-4.2); Glucose 106 mg/dL (74-106); Potassium 3.7 mmol/L (3.5-5.1); Protein, Total 6.2 g/dL (6.4-8.2); Sodium Level 138 mmol/L (136-145)
[2018-04-16 14:53] LABS: Differential Comment SCANNED
[2018-04-16 16:10] VITALS: BP 123/75; PULSE 104; RESP 16; O2SAT 98
[2018-04-16] MEDS: Morphine 4 MG/ML Syringe IV (16:17)
[2018-04-16 17:39] LABS: Color, Urine Yellow (Yellow); Glucose, Dipstick Normal (Normal); Ketone-Dipstick 5 mg/dl (Negative); Leukocyte Esterase-Dipstick 25 /ul (Negative); Nitrite-Dipstick Negative (Negative); Occult Blood-Urine Negative /ul (Negative); Protein-Dipstick 15 mg/dl (Negative); Urine Clarity Sl. Cloudy (Clear); Urine Urobilinogen 1 mg/dl (Normal)
[2018-04-16 17:45] LABS: Urine Bilirubin Dipstick 1 mg/dL (Negative)
[2018-04-16 17:46] LABS: Red Blood Cells-Urine 0-5 SEEN /hpf (0-5); White Blood Cells 0-5 SEEN /hpf (0-5)
[2018-04-16 17:47] LABS: Bacteria RARE /hpf (None Seen); Mucous, Urine 1+ /hpf (<or=2+); Squamous Epithelial Cells - UA 0-5 SEEN /hpf (0-5)
--- NOTE | 2018-04-16 18:00 | ED.VISSUMM ---
- ER Visit Summary Date of Service: 04/16/18 Chief Complaint: Wound buttocks, shortness of breath and anxiety. History of Present Illness: The patient is a 67 M who has metastatic esophageal cancer with bilateral pleural effusions, ascites who was recently admitted to [facility]. He had a CTA at that time that ruled out pulmonary embolus and no pneumonia. He is presently on anti-coagulant because of his history of cancer and prior DVT/PE. He is not a good informant. He is very anxious. He denies fever, chills night sweats. He does report significant weight loss. He denies visual, ocular auditory symptoms. He complains of shortness of breath and cough. Cough is nonproductive. He also complains of dyspnea on exertion. He denies orthopnea or PND. He does report nausea without vomiting or diarrhea. Denies black or maroon stool. He denies dysuria, frequency or urgency. He does complain of generalized weakness. Past medical history includes type 2 diabetes, DVT PE. Malnourishment. He had a PEG. He has had decreased p.o. intake and weight loss recently. Physical Examination: Vital signs are unremarkable. Blood pressure is slightly elevated 130/72. He is thin and pale. He appears very anxious. Eyes are sunken. Pupils equal round reactive paradoxic muscle intact. Sclerae anicteric. Mucosa slightly dry. Trach is midline. Patient has a regular heart without murmur, gallop or rub. There is decreased air movement and difficult to assess for rales or rhonchi. Abdomen soft nontender with evidence of ascites. He has a large reducible right inguinal hernia. Lower extremity exam is remarkable for pallor and 3+ pitting edema. He is alert oriented. Neuro exam is nonfocal. Test Results: Monitor reveals a sinus rhythm rate between 85 and 100. EKG sinus rhythm rate of 91 with low voltage and left anterior fascicular block. [place] interval is normal. Q church is normal. Chest x-ray reveals atelectasis versus possible small infiltrate retrocardiac space. Comprehensive metabolic panel reveals albumin 1.8 and total protein of 6. Electro lites are unremarkable. Emergency Department Course and Treatment: To evaluate patient's complaints of shortness of breath cough, edema blood work was obtained. Clinically appears anemic CBC was obtained. Treatment Plan: Case discussed Dr. Rangel. He received a gram of Rocephin and Ativan. He has an appointment to see Dr. Rangel tomorrow. Recommend she is in agreement his lymphedema secondary to hypoalbuminemia. Is a secondary to malnourishment. Dr. Holman informed me that he weighed 300 pounds prior to his diagnosis. Disposition: Discharged home with outpatient follow-up tomorrow with Dr. Holman Impression: 1. Grade 2 noninfected gluteal ulcers 2. Dyspnea uncertain etiology 3. Small bilateral pleural effusions 4. Ascites 5. Metastatic esophageal cancer 6. Malnourishment 7. Bilateral lymphedema This note was generated with [employer] dictation software. It may contain incorrect words, spelling, and punctuation that were not noted in review of the chart prior to signing ED Disposition - Plan for ED Patient: Disposition: Home or Assisted Living Instructions: ED Dyspnea Shortness of Breath, ED Lymphedema, ED Ascites Referrals: Awais Holman DO [Primary Care Provider] - Keep Edwin appointment
--- NOTE | 2018-04-16 18:08 | ED.DCSUM_ITS ---
- ER Visit Summary Date of Service: 04/16/18 Chief Complaint: Wound buttocks, shortness of breath and anxiety. History of Present Illness: The patient is a 67 M who has metastatic esophageal cancer with bilateral pleural effusions, ascites who was recently admitted to [facility]. He had a CTA at that time that ruled out pulmonary embolus and no pneumonia. He is presently on anti-coagulant because of his history of cancer and prior DVT/PE. He is not a good informant. He is very anxious. He denies fever, chills night sweats. He does report significant weight loss. He denies visual, ocular auditory symptoms. He complains of shortness of breath and cough. Cough is nonproductive. He also complains of dyspnea on exertion. He denies orthopnea or PND. He does report nausea without vomiting or diarrhea. Denies black or maroon stool. He denies dysuria, frequency or urgency. He does complain of generalized weakness. Past medical history includes type 2 diabetes, DVT PE. Malnourishment. He had a PEG. He has had decreased p.o. intake and weight loss recently. Physical Examination: Vital signs are unremarkable. Blood pressure is slightly elevated 130/72. He is thin and pale. He appears very anxious. Eyes are sunken. Pupils equal round reactive paradoxic muscle intact. Sclerae anicteric. Mucosa slightly dry. Trach is midline. Patient has a regular heart without murmur, gallop or rub. There is decreased air movement and difficult to assess for rales or rhonchi. Abdomen soft nontender with evidence of ascites. He has a large reducible right inguinal hernia. Lower extremity exam is remarkable for pallor and 3+ pitting edema. He is alert oriented. Neuro exam is nonfocal. Test Results: Monitor reveals a sinus rhythm rate between 85 and 100. EKG sinus rhythm rate of 91 with low voltage and left anterior fascicular block. [place] interval is normal. Q anabaptism is normal. Chest x-ray reveals atelectasis versus possible small infiltrate retrocardiac space. Comprehensive metabolic panel reveals albumin 1.8 and total protein of 6. Electro lites are unremarkable. Emergency Department Course and Treatment: To evaluate patient's complaints of shortness of breath cough, edema blood work was obtained. Clinically appears anemic CBC was obtained. Treatment Plan: Case discussed Dr. Rangel. He received a gram of Rocephin and Ativan. He has an appointment to see Dr. Rangel tomorrow. Recommend she is in agreement his lymphedema secondary to hypoalbuminemia. Is a secondary to malnourishment. Dr. Holman informed me that he weighed 300 pounds prior to his diagnosis. Disposition: Discharged home with outpatient follow-up tomorrow with Dr. Holman Impression: 1. Grade 2 noninfected gluteal ulcers 2. Dyspnea uncertain etiology 3. Small bilateral pleural effusions 4. Ascites 5. Metastatic esophageal cancer 6. Malnourishment 7. Bilateral lymphedema This note was generated with [employer] dictation software. It may contain incorrect words, spelling, and punctuation that were not noted in review of the chart prior to signing ED Disposition - Plan for ED Patient: Disposition: Home or Assisted Living Instructions: ED Dyspnea Shortness of Breath, ED Lymphedema, ED Ascites Referrals: Awais Holman DO [Primary Care Provider] - Keep Edwin appointment
[2018-04-16] MEDS: LORazepam 2 MG/ML Syringe 0.5 MG IV (18:10)
[2018-04-16] MEDS: Ceftriaxone 1 GM/50 ML BAG IV (18:12)
[2018-04-16 18:15] VITALS: BP 107/68; PULSE 115; RESP 18; O2SAT 97
[2018-04-16 18:32] VITALS: BP 111/64; PULSE 97; RESP 18; O2SAT 97
== END 2018-04-16 18:45 | disposition home or self-care (01) ==
PROVIDERS: Emergency Provider Emergency Medicine; Family Provider Internal Medicine Hematology & Oncology; PCP Internal Medicine Hematology & Oncology
DX: E11.622 Type 2 diabetes mellitus with other skin ulcer (principal); L98.419 Non-pressure chronic ulcer of buttock with unspecified severity; R06.00 Dyspnea, unspecified; J90 Pleural effusion, not elsewhere classified; R18.8 Other ascites; C15.9 Malignant neoplasm of esophagus, unspecified; C79.9 Secondary malignant neoplasm of unspecified site; I89.0 Lymphedema, not elsewhere classified; E46 Unspecified protein-calorie malnutrition; Z93.1 Gastrostomy status; Z86.718 Personal history of other venous thrombosis and embolism; Z86.711 Personal history of pulmonary embolism; Z79.01 Long term (current) use of anticoagulants; Z79.899 Other long term (current) drug therapy; Z72.0 Tobacco use
CPT/HCPCS: 36415; 71046; 80053; 81001; 85025; 93005; 94640; 96365; 96375; 99283; A4216